=== PATIENT | male | born 1960 | race Caucasian/White ===

== ENCOUNTER 2016-11-14 09:13 | Day surgery (SDC) | payer BC ==
[~2016-11-14] VITALS: Ht 182.9 cm; Wt 67.6 kg
[~2016-11-14 09:13] MED LIST: BUPIVACAINE-EPI 0.5%-1:200000 50 ML VIAL. ONE; HYDROmorphone 2 MG/ML VIAL IV PRN; IV RINGERS,LACTATED 1000ML 1,000 ML IV SCH; LIDOCAINE 1% 1 ML SYRINGE. ID PRN; MORPHINE SULFATE 2 MG/ML DISP.SYRIN. IV PRN; ONDANSETRON PF 4 MG/2 ML VIAL. IV PRN; PROCHLORPERAZINE 10 MG/2 ML VIAL. IV PRN; fentaNYL PF VIAL 100 MCG/2 ML VIAL IV PRN
[2016-11-14] MEDS ORDERED: VENTOLIN HFA18 GM INH (09:28)
[2016-11-14] MEDS ORDERED: FLUT1DIS IH (09:28)
[2016-11-14] MEDS ORDERED: PROPOFOL 20 ML IV ONE (11:06)
[2016-11-14] MEDS ORDERED: ONDANSETRON PF 4 MG/2 ML VIAL. ONE (11:06)
[2016-11-14] MEDS ORDERED: FAMOTIDINE 20 MG/2 ML VIAL ONE ×2 (11:06→12:06)
[2016-11-14] MEDS ORDERED: LIDOCAINE 2% PF Vial for OR 5 ML VIAL. ONE (11:06)
[2016-11-14] MEDS ORDERED: DEXAMETHASONE SOD PHOS 20 MG/5 ML VIAL. ONE (11:06)
[2016-11-14] MEDS ORDERED: ROCURONIUM 100 MG/10 ML VIAL. ONE (11:08)
[2016-11-14] MEDS ORDERED: MIDAZOLAM HCL/PF 2 MG/2 ML VIAL. ONE (11:08)
[2016-11-14] MEDS ORDERED: fentaNYL PF VIAL 100 MCG/2 ML VIAL ONE ×2 (11:08→12:07)
[2016-11-14] MEDS ORDERED: GLYCOPYRROLATE 1 MG/5 ML VIAL. ONE (12:59)
[2016-11-14] MEDS ORDERED: NEOSTIGMINE METHYLSULFATE 5 MG/5 ML SYRINGE. ONE (13:00)
[2016-11-14] MEDS ORDERED: SEVOFLURANE 61 TO 120 MINUTES. IH ONE (13:08)
--- NOTE | 2016-11-14 13:41 | PDOC ---
BRIEF OPERATIVE NOTE Pre-Op Diagnosis #[id number] RIH incarcerated umb hernia lap rih repair with mesh primary open repair of incarcerated umb hernia k lloyd keene ebl 10 ivf 1000 grupo well to rr stable JEANNIE SANTANA MD Nov 14, 2016 13:41
[2016-11-14] MEDS ORDERED: OXYC-323 PO (14:03)
[2016-11-14] MEDS ORDERED: oxyCODONE/APAP 5/325 1 TAB TABLET PO ONE (14:15)
[2016-11-14 14:58] VITALS: BP 127/74
--- NOTE | 2016-11-14 15:11 | OP ---
DATE OF SURGERY: 11/14/2016 PREOPERATIVE DIAGNOSES: 1. Right inguinal hernia. 2. Incarcerated umbilical hernia. POSTOPERATIVE DIAGNOSES: 1. Right inguinal hernia. 2. Incarcerated umbilical hernia. NAME OF THE PROCEDURE: 1. Laparoscopic right inguinal hernia repair with mesh. 2. Primary incarcerated open umbilical hernia repair. SURGEON: Jeannie Santana MD ANESTHESIA: General. ESTIMATED BLOOD LOSS: 10 mL. IV FLUIDS: 1000 mL. INDICATIONS FOR THE PROCEDURE: The patient is a 56-year-old male with symptomatic right inguinal hernia and incarcerated umbilical hernia that he would like to have repaired. FINDINGS: He had an indirect right inguinal hernia. The sac was rather large. He had an incarcerated umbilical hernia; the preperitoneal fat was incarcerated. DESCRIPTION OF PROCEDURE: After informed consent was obtained, the patient was taken to the operating room and placed in supine position. After adequate induction of general anesthesia, he was prepped and draped in usual sterile fashion. An infraumbilical skin incision was made with a scalpel, subcutaneous tissues divided with cautery. The umbilical stalk encircled with a hemostat and the dermis of the umbilicus was then removed from the hernia sac with cautery. The incarcerated content was preperitoneal fat. This was reduced back within the preperitoneal space. The defect measured 5-6 mm and it was dilated up with a 10 mm port to gain direct access to the peritoneal cavity. Pneumoperitoneum was established under direct vision which revealed good port placement. No evidence of entry trauma. This was a 5-mm 30-degree lens. Two additional ports were placed on either side of the midline just at the level of the umbilicus. These were 5 mm ports placed under direct vision after injecting the areas with local anesthetic. An ilioinguinal nerve block was performed 1 cm medially and 1 cm inferior to the ASIS on the right. The peritoneum was then scored from the ASIS on the right across to the midline with cautery and the preperitoneal space developed with DeBakey graspers. In doing so, the peritoneal flap was skeletonized well proximal on the spermatic cord structures. The hernia sac was long and densely adherent to the cord structures, but this was able to be reduced as well. The dissection was carried to the midline and then deep to the Jonas's ligament to expose the femoral space. A large piece of 3DMax mesh was then brought on to the field. It was placed in the preperitoneal space on the right and it was sutured to the pubic tubercle along the rectus muscle medially along the anterior abdominal wall musculature. No tacks were placed along Jonas's ligament and no tacks were placed beneath the iliopubic tract laterally. This was done with SecureStrap. The mesh at that point sat flat against the preperitoneal space that covered the direct, indirect and femoral spaces. The peritoneal flap could be reapproximated without shifting or rolling of the mesh. Peritoneal flap was then reapproximated to the SecureStrap. The hernia sac was also secured at the anterior abdominal wall to prevent it from being a lead point for recurrence. At this point, the flap was firmly reapproximated to the anterior abdominal wall with a SecureStrap. There was no mesh visible. There were no defects or gaping in the flap closure. Everything was hemostatic. The ports were removed under direct vision. They were hemostatic. Pneumoperitoneum was desufflated. The umbilical hernia was then closed primarily with 0 Prolene suture x2, so the knots were buried. Dermis of the umbilicus was tacked back down to the fascia. The fascia was injected with local anesthetic. Skin was closed at all incisions with 4-0 Monocryl in subcuticular fashion. Sterile dressings were placed which for the umbilicus consisted of Mastisol, Steri-Strips, a cotton ball and Tegaderm. He tolerated the procedure well. There were no apparent complications. He was then transferred in stable condition to the recovery room. JEANNIE SANTANA MD DR: URMILA/mercedes JOB#: [id number] / [id number] KENYON Mccauley MD
== END 2016-11-14 15:05 | disposition home or self-care (01) ==
LOC: SURG 09:13
PROVIDERS: ATTEND Surgery
DX: K40.90 Unilateral inguinal hernia, without obstruction or gangrene, not specified as recurrent (principal); K42.0 Umbilical hernia with obstruction, without gangrene; J45.909 Unspecified asthma, uncomplicated; Z72.89 Other problems related to lifestyle; Z72.0 Tobacco use
CPT/HCPCS: 49587; 49650; A4215; C1781; J0690; J1100; J2250; J2405; J2704; J2710; J3010; J3490; J7030; J7120; S0028; J2001

== ENCOUNTER 2016-11-14 18:02 | Inpatient (IN) | payer BC ==
[~2016-11-14] VITALS: Ht 182.9 cm; Wt 68.0 kg
[~2016-11-14 18:02] MED LIST changes: -BUPIVACAINE-EPI 0.5%-1:200000 50 ML VIAL. ONE; +FLUT1DIS IH; -HYDROmorphone 2 MG/ML VIAL IV PRN; -IV RINGERS,LACTATED 1000ML 1,000 ML IV SCH; -LIDOCAINE 1% 1 ML SYRINGE. ID PRN; -MORPHINE SULFATE 2 MG/ML DISP.SYRIN. IV PRN; -ONDANSETRON PF 4 MG/2 ML VIAL. IV PRN; +OXYC-323 PO; -PROCHLORPERAZINE 10 MG/2 ML VIAL. IV PRN; +VENTOLIN HFA18 GM INH; -fentaNYL PF VIAL 100 MCG/2 ML VIAL IV PRN
[2016-11-14 18:57] LABS: BASO % 0 % (0-3); EOS % 0 % (0-3); HEMATOCRIT 38.2 % (39.0-53.0); HEMOGLOBIN 12.9 g/dL (13.0-17.5); LYMPH # 0.4 x10^3/uL (1.0-4.8); LYMPH % 5 % (24-48); MEAN CORPUSCULAR HEMOGLOBIN 34 pg (25-35); MEAN CORPUSCULAR HGB CONC 34 g/dL (31-37); MEAN CORPUSCULAR VOLUME 100 fL (79-100); MONO % 1 % (0-9); NEUT % 94 % (31-73); PLATELET COUNT 202 x10^3/uL (140-400); RED BLOOD COUNT 3.83 x10^6/uL (4.30-5.70); RED CELL DISTRIBUTION WIDTH 13.2 % (11.5-14.5); WHITE BLOOD COUNT 8.5 x10^3/uL (4.0-11.0)
[2016-11-14] MEDS ORDERED: IV NORMAL SALINE 1000ML BAG 1,000 ML IV ONE (19:00)
[2016-11-14 19:08] LABS: PROTHROMBIN TIME PATIENT 12.9 SEC (11.7-14.0)
[2016-11-14 19:11] LABS: CALCIUM 9.1 mg/dL (8.5-10.1); CREATININE 0.9 mg/dL (0.7-1.3); GFR 86.7
[2016-11-14 19:17] LABS: % EOS 1 % (0-5); ALBUMIN 3.7 g/dL (3.4-5.0); ALBUMIN/GLOBULIN RATIO 1.2 (1.0-1.7); TOTAL BILIRUBIN 0.5 mg/dL (0.2-1.0); TOTAL PROTEIN 6.7 g/dL (6.4-8.2)
[2016-11-14 19:18] LABS: PLT ESTIMATE ADEQUATE (ADEQUATE)
--- NOTE | 2016-11-14 19:25 | RAD ---
CT HEAD INDICATION: PT STATES HERNIA SURGERY THIS AM INCISION SWELLING AND L SIDED NUMBNESS COMPARISON: 07/07/2009 TECHNIQUE: 5 mm contiguous axial images were obtained from the skull base to the vertex. Exposure: One or more of the following individualized dose reduction techniques were utilized for this examination: 1. Automated exposure control 2. Adjustment of the mA and/or kV according to patient size 3. Use of iterative reconstruction technique FINDINGS: No abnormal attenuation within the brain parenchyma. No evidence of acute intracranial hemorrhage. No extra-axial fluid collections. No mass effect or midline shift. Ventricular size is appropriate. Basal cisterns are patent. No fractures identified.Pearson-white differentiation is preserved.Globes and orbits are within normal limits. Moderate mucosal thickening identified in the right maxillary sinus and mild mucosal thickening identified in the left maxillary sinus with small mucous retention cyst or polyp identified in the left maxillary sinus. IMPRESSION: No acute intracranial findings. ER ordering physician called at time of dictation. Electronically signed by: Neel Membreno MD (11/14/2016 7:22 PM) [facility]
[2016-11-14] MEDS ORDERED: IOHEXOL 300 MG/ML 75 ML VIAL IV ONE (20:15)
[2016-11-14] MEDS ORDERED: CONTRAST GIVEN MC PRN (20:15)
[2016-11-14 20:43] LABS: BILIRUBIN,URINE NEGATIVE (NEG); GLUCOSE,URINE NEGATIVE (NEG); NITRITE,URINE NEGATIVE (NEG); PROTEIN,URINE NEGATIVE (NEG-TRACE); UROBILINOGEN,URINE 0.2 mg/dL (0.2 mg/dL)
[2016-11-14 20:47] LABS: BACTERIA,URINE 0 /HPF (0-FEW)
[2016-11-14] MEDS ORDERED: MORPHINE SULFATE 4 MG/ML DISP.SYRIN. IV/SQ PRN (21:30)
--- NOTE | 2016-11-14 21:31 | RAD ---
Exam performed: CT abdomen and pelvis with contrast. HISTORY: Hernia. Today, incision swelling and left-sided numbness which shortness of air. DATE OF SERVICE: 11/14/2016. COMPARISON: None available TECHNIQUE: Contiguous helical acquisitions are obtained through the abdomen and pelvis during intravenous administration of 75 cc of Omnipaque 300. Sagittal and coronal reformatted images are obtained and reviewed. FINDINGS: Moderate pneumoperitoneum is seen anterior to the liver and along the gallbladder fossa. There is free at the edge of the falciform ligament. Several free pockets of air seen in the left upper abdomen anterior to the stomach. There is subcutaneous emphysema in the abdominal wall bilaterally with air tracking in both flanks. Operative changes of hernia repair seen in the right groin with soft tissue swelling and subcutaneous air. There is also free air trapping in the pelvis. Lung bases are clear. The visualized heart is normal. The liver, gallbladder, spleen and pancreas are normal. Both adrenal glands and bilateral kidneys are normal in size. Probable cyst right superior renal pole. The aorta is normal in caliber demonstrating mild atheromatous calcification. Small and large bowel loops are nondilated and unremarkable. Urinary bladder is partially decompressed. Moderate amount of free air in the urinary bladder may be related to instrumentation. Prostate gland, seminal vesicles and rectum appear normal. Interrogation of bone windows demonstrates mild spondylotic changes. IMPRESSION: Moderate pneumoperitoneum with diffuse subcutaneous emphysema. While the subcutaneous emphysema may be related to recent postoperative changes, however pneumoperitoneum secondary to bowel perforation is suspected. The critical results were given to Dr. Hess in the ER soon after completion of the study at 9:23 PM. Electronically signed by: Ronda Camargo MD (11/14/2016 9:28 PM) [place] [id number]
[2016-11-14] MEDS ORDERED: MORPHINE SULFATE 2 MG/ML DISP.SYRIN. IV PRN (22:30)
[2016-11-14] MEDS ORDERED: ACETAMINOPHEN 325 MG TABLET. PO PRN (22:30)
[2016-11-14] MEDS ORDERED: ONDANSETRON PF 4 MG/2 ML VIAL. IV PRN (22:30)
--- NOTE | 2016-11-14 22:33 | PHYS DOC ---
Past Medical History Past Medical History: Other Additional Past Medical Histor: Hernia Past Surgical History: Other Additional Past Surgical Histo: Hernia Repair Alcohol Use: Heavy Drug Use: None Adult General Chief Complaint Chief Complaint: OTHER COMPLAINTS HPI HPI Patient is a 56 year old male who presents with multiple complaints after surgery today. The patient states he underwent inguingal & umbilical hernia repair by Dr. Cotton at about 1100 this morning. Around 1630 this afternoon he had sudden onset of left sided chest pain, left arm pain & numbness, & abdominal pain & distention. Reports shortness of breath. He denies fevers/ chills, slurred speech, vision changes, facial droop, cough, vomiting, diarrhea , dysuria. He denies significant past medical history. Review of Systems Review of Systems Constitutional: Denies fever or chills Eyes: Denies change in visual acuity HENT: Denies nasal congestion or sore throat Respiratory: Denies cough, reports shortness of breath Cardiovascular: Reports chest pain, denies edema GI: Reports abdominal pain, denies nausea, vomiting, bloody stools or diarrhea : Denies dysuria or hematuria Musculoskeletal: Denies back pain or joint pain Integument: Denies rash or skin lesions Neurologic: Denies headache, reports left arm numbness & weakness. Current Medications Current Medications Current Medications Medications (Trade) Dose Ordered Sig/Evi Start Time Stop Time Status Last Admin Dose Admin Info (Do NOT chart on this entry -- for MONITORING) 1 each PRN DAILY PRN 11/14/16 20:15 11/16/16 20:14 Iohexol (Omnipaque 300 Mg/ml) 75 ml 1X ONCE 11/14/16 20:15 11/14/16 20:16 DC 11/14/16 20:15 75 ML Morphine Sulfate 4 mg PRN Q15MIN PRN 11/14/16 21:30 11/15/16 21:29 11/14/16 21:41 4 MG Sodium Chloride 1,000 ml @ 1,000 mls/hr 1X ONCE 11/14/16 19:00 11/14/16 19:59 DC 11/14/16 18:56 1,000 MLS/HR Allergies Allergies Allergies Coded Allergies Type Severity Reaction Last Updated Verified No Known Drug Allergies 11/14/16 No Physical Exam Physical Exam Constitutional: Well developed, well nourished, no acute distress, non-toxic appearance. HENT: Normocephalic, atraumatic, bilateral external ears normal, oropharynx moist, nose normal. Eyes: PERRLA, EOMI, conjunctiva normal, no discharge. Neck: supple, no stridor. no carotid bruit Cardiovascular: RRR, no murmurs, no edema. Lungs & Thorax: LCTAB, no wheezing, no respiratory distress. reproducible tenderness with palpation over left anterior chest wall. Abdomen: soft, surgical dressings in place, clean/dry, intact, there is focal distention over right lower quadrant of the abdomen with overlying tenderness, no rebound/guarding, no masses or pulsatile masses. Skin: Warm, dry, no erythema, no rash. Back: No CVA tenderness. Extremities: No tenderness, no edema. Neurologic: Alert and oriented X 3, CN2-12 grossly intact, left upper extremity 4/5 strength with transmissions systems operator strength & resisted biceps flexion/extension, normal sensation, clumsy finger to nose, all (transmissions systems operator/biceps/sensation/finger to nose) intact on the right. no focal deficits noted. symmetric strength/sensation to lower extremities. Psychologic: Affect normal, judgement normal, mood normal. Current Patient Data Vital Signs Vital Signs Date Time Temp Pulse Resp B/P (MAP) Pulse Ox O2 Delivery O2 Flow Rate FiO2 11/14/16 21:41 69 16 155/85 (108) 95 Room Air 11/14/16 18:15 98.7 98.7 Lab Values Laboratory Tests Test 11/14/16 18:45 11/14/16 20:33 White Blood Count 8.5 x10^3/uL (4.0-11.0) Red Blood Count 3.83 x10^6/uL (4.30-5.70) L Hemoglobin 12.9 g/dL (13.0-17.5) L Hematocrit 38.2 % (39.0-53.0) L Mean Corpuscular Volume 100 fL (79-100) Mean Corpuscular Hemoglobin 34 pg (25-35) Mean Corpuscular Hemoglobin Concent 34 g/dL (31-37) Red Cell Distribution Width 13.2 % (11.5-14.5) Platelet Count 202 x10^3/uL (140-400) Neutrophils (%) (Auto) 94 % (31-73) H Lymphocytes (%) (Auto) 5 % (24-48) L Monocytes (%) (Auto) 1 % (0-9) Eosinophils (%) (Auto) 0 % (0-3) Basophils (%) (Auto) 0 % (0-3) Neutrophils # (Auto) 7.9 x10^3uL (1.8-7.7) H Lymphocytes # (Auto) 0.4 x10^3/uL (1.0-4.8) L Monocytes # (Auto) 0.1 x10^3/uL (0.0-1.1) Eosinophils # (Auto) 0.0 x10^3/uL (0.0-0.7) Basophils # (Auto) 0.0 x10^3/uL (0.0-0.2) Segmented Neutrophils % 82 % (35-66) H Band Neutrophils % 13 % (0-9) H Lymphocytes % 3 % (24-48) L Monocytes % 1 % (0-10) Eosinophils % 1 % (0-5) Platelet Estimate Adequate (ADEQUATE) Prothrombin Time 12.9 SEC (11.7-14.0) Prothrombin Time INR 1.0 (0.8-1.1) PTT 28 SEC (24-38) D-Dimer (Danisha) 0.27 ug/mlFEU (0.00-0.50) Sodium Level 140 mmol/L (136-145) Potassium Level 4.0 mmol/L (3.5-5.1) Chloride Level 102 mmol/L (98-107) Carbon Dioxide Level 28 mmol/L (21-32) Anion Gap 10 (6-14) Blood Urea Nitrogen 14 mg/dL (8-26) Creatinine 0.9 mg/dL (0.7-1.3) Estimated GFR (Cockcroft-Gault) 86.7 BUN/Creatinine Ratio 16 (6-20) Glucose Level 143 mg/dL (70-99) H Calcium Level 9.1 mg/dL (8.5-10.1) Total Bilirubin 0.5 mg/dL (0.2-1.0) Aspartate Amino Transferase (AST) 27 U/L (15-37) Alanine Aminotransferase (ALT) 41 U/L (16-63) Alkaline Phosphatase 89 U/L (46-116) Troponin I Quantitative < 0.017 ng/mL (0.000-0.055) OT-Uke-S-Type Natriuretic Peptide 108 pg/mL (0-124) Total Protein 6.7 g/dL (6.4-8.2) Albumin 3.7 g/dL (3.4-5.0) Albumin/Globulin Ratio 1.2 (1.0-1.7) Lipase 79 U/L (73-393) Urine Collection Type Unknown Urine Color Yellow Urine Clarity Cloudy Urine pH 6.0 Urine Specific [place] 1.025 Urine Protein Negative mg/dL (NEG-TRACE) Urine Glucose (UA) Negative mg/dL (NEG) Urine Ketones (Stick) Negative mg/dL (NEG) Urine Blood Small (NEG) Urine Nitrite Negative (NEG) Urine Bilirubin Negative (NEG) Urine Urobilinogen Dipstick 0.2 mg/dL (0.2 mg/dL) Urine Leukocyte Esterase Negative (NEG) Urine RBC 6-10 /HPF (0-2) Urine WBC 1-4 /HPF (0-4) Urine Bacteria 0 /HPF (0-FEW) Urine Mucus Marked /LPF Laboratory Tests 11/14/16 18:45 Laboratory Tests 11/14/16 18:45 EKG EKG interpreted by me: NSR rate 61, no acute ST/T wave changes, normal intervals, no ectopy.[] Radiology/Procedures Radiology/Procedures CXR portable: interpreted by me: no cardiomegaly, no infiltrate, no pneumothorax, free air under diaphragm. PROCEDURE: CT CODE STROKE HEAD WO CT HEAD INDICATION: PT STATES HERNIA SURGERY THIS AM INCISION SWELLING AND L SIDED NUMBNESS COMPARISON: 07/07/2009 TECHNIQUE: 5 mm contiguous axial images were obtained from the skull base to the vertex. Exposure: One or more of the following individualized dose reduction techniques were utilized for this examination: 1. Automated exposure control 2. Adjustment of the mA and/or kV according to patient size 3. Use of iterative reconstruction technique FINDINGS: No abnormal attenuation within the brain parenchyma. No evidence of acute intracranial hemorrhage. No extra-axial fluid collections. No mass effect or midline shift. Ventricular size is appropriate. Basal cisterns are patent. No fractures identified.Pearson-white differentiation is preserved.Globes and orbits are within normal limits. Moderate mucosal thickening identified in the right maxillary sinus and mild mucosal thickening identified in the left maxillary sinus with small mucous retention cyst or polyp identified in the left maxillary sinus. IMPRESSION: No acute intracranial findings. ER ordering physician called at time of dictation. Electronically signed by: Neel Membreno MD (11/14/2016 7:22 PM) [facility] DICTATED and SIGNED BY: NEEL MEMBRENO MD DATE: 11/14/161917 PROCEDURE: CT ABD PELV W/ IV CONTRST ONLY Exam performed: CT abdomen and pelvis with contrast. HISTORY: Hernia. Today, incision swelling and left-sided numbness which shortness of air. DATE OF SERVICE: 11/14/2016. COMPARISON: None available TECHNIQUE: Contiguous helical acquisitions are obtained through the abdomen and pelvis during intravenous administration of 75 cc of Omnipaque 300. Sagittal and coronal reformatted images are obtained and reviewed. FINDINGS: Moderate pneumoperitoneum is seen anterior to the liver and along the gallbladder fossa. There is free at the edge of the falciform ligament. Several free pockets of air seen in the left upper abdomen anterior to the stomach. There is subcutaneous emphysema in the abdominal wall bilaterally with air tracking in both flanks. Operative changes of hernia repair seen in the right groin with soft tissue swelling and subcutaneous air. There is also free air trapping in the pelvis. Lung bases are clear. The visualized heart is normal. The liver, gallbladder, spleen and pancreas are normal. Both adrenal glands and bilateral kidneys are normal in size. Probable cyst right superior renal pole. The aorta is normal in caliber demonstrating mild atheromatous calcification. Small and large bowel loops are nondilated and unremarkable. Urinary bladder is partially decompressed. Moderate amount of free air in the urinary bladder may be related to instrumentation. Prostate gland, seminal vesicles and rectum appear normal. Interrogation of bone windows demonstrates mild spondylotic changes. IMPRESSION: Moderate pneumoperitoneum with diffuse subcutaneous emphysema. While the subcutaneous emphysema may be related to recent postoperative changes, however pneumoperitoneum secondary to bowel perforation is suspected. The critical results were given to Dr. Hess in the ER soon after completion of the study at 9:23 PM. Electronically signed by: Ronda Camargo MD (11/14/2016 9:28 PM) [facility] DICTATED and SIGNED BY: RONDA CAMARGO MD DATE: 11/14/162115 [] Course & Med Decision Making Course & Med Decision Making Pertinent Labs and Imaging studies reviewed. (See chart for details) The patient has multiple potentially serious complaints in the postoperative period. Though there are certainly benign explanations for each of his problems , will evaluate for serious/life threatening cause. He had onset of symptoms 3.5 hours prior to arrival but with abdominal surgery today is not a candidate for TPA. Obtained urgent head CT which was negative for hemorrhage. Discussed with Dr. Bradshaw, agrees no TPA particularly as patient's left arm symptoms had completely disappeared at that time. He recommended aspirin 81 mg now & daily, if okay by surgery. Recommends admit for MRI/carotid dopplers. Obtained labs, EKG, CXR, CTA chest & CT abdomen/pelvis. Patient had moderate free air in abdomen; in the absence of peritoneal signs, Dr. Oseguera of general surgery felt likely normal pneumoperitoneum postoperatively but agrees with admit for repeat exam in the morning. No serious findings for cause of chest pain but will repeat cardiac enzymes. The patient agrees with plan for admission. Discussed with Dr. Abarca who agrees to admit to inpatient status with consults to Dr. Cotton of general surgery, Dr. Christensen of cardiology The patient is admitted in stable condition. [] Dragon Disclaimer Dragon Disclaimer This electronic medical record was generated, in whole or in part, using a voice recognition dictation system. Departure Departure Impression: Primary Impression: TIA (transient ischemic attack) Additional Impressions: Chest pain Abdominal pain Disposition: 09 ADMITTED INPATIENT Admitting Physician: Zuleyma Abarca Condition: STABLE Referrals: KENYON LOGAN Jr, MD (PCP) Problem Qualifiers RIO HUBBARD MD Nov 14, 2016 22:33
[2016-11-14] MEDS ORDERED: ASPIRIN ENTERIC COATED 81 MG TABLET.DR. PO ONE (22:45)
--- NOTE | 2016-11-14 22:55 | EKG ---
[facility] [address] [place] [address] Test Date: 2016-11-14 Test Time: 18:22:18 Pat Name: ZOE WOODS Department: Room: Gender: M Plumbing Foreman: : 1960 Requested By: RIO HUBBARD Order Number: [id number] Reading MD: Avery Christensen Measurements Intervals [place] Rate: 61 P: 55 HI: 146 QRS: 41 QRSD: 88 T: 39 QT: 390 QTc: 398 Interpretive Statements SINUS RHYTHM Electronically Signed On 11-15-2016 13:31:17 CDT by Avery Christensen
--- NOTE | 2016-11-14 23:13 | RAD ---
Examination: CT angiography chest HISTORY: History of hernia repair, shortness of breath COMPARISON: None available TECHNIQUE: Axial CT images of this were performed with IV contrast. Coronal and sagittal 3-D MIP reformats are performed. Exposure: One or more of the following individualized dose reduction techniques were utilized for this examination: 1. Automated exposure control 2. Adjustment of the mA and/or kV according to patient size 3. Use of iterative reconstruction technique FINDINGS: The visualized thyroid gland grossly appears unremarkable. The central airways are patent. The ascending aorta measures 3.3 cm in transverse dimension. There is no evidence of filling defect identified in the main pulmonary artery and the visualized lobar, segmental branches pulmonary artery. Minimal bibasilar lung atelectasis. Partially visualized free air identified in the abdomen. No evidence of lytic bony destructive lesion identified. IMPRESSION: 1. No evidence of pulmonary embolism. 2. Minimal bibasilar lung atelectasis. 3. Partially visualized pneumoperitoneum. Electronically signed by: Neel Membreno MD (11/14/2016 11:10 PM) [facility]
[2016-11-14 23:20] VITALS: BP 135/76
[2016-11-15 03:20] VITALS: BP 116/63
[2016-11-15 05:41] LABS: BASO % 0 % (0-3); EOS % 0 % (0-3); HEMATOCRIT 36.6 % (39.0-53.0); HEMOGLOBIN 12.6 g/dL (13.0-17.5); LYMPH # 0.9 x10^3/uL (1.0-4.8); LYMPH % 11 % (24-48); MEAN CORPUSCULAR HEMOGLOBIN 34 pg (25-35); MEAN CORPUSCULAR HGB CONC 34 g/dL (31-37); MEAN CORPUSCULAR VOLUME 99 fL (79-100); MONO % 10 % (0-9); NEUT % 78 % (31-73); PLATELET COUNT 207 x10^3/uL (140-400); RED BLOOD COUNT 3.71 x10^6/uL (4.30-5.70); RED CELL DISTRIBUTION WIDTH 13.4 % (11.5-14.5); WHITE BLOOD COUNT 8.2 x10^3/uL (4.0-11.0)
[2016-11-15 05:46] LABS: CALCIUM 8.5 mg/dL (8.5-10.1); CREATININE 0.8 mg/dL (0.7-1.3); GFR 99.3; POTASSIUM 4.2 mmol/L (3.5-5.1)
[2016-11-15 07:00] VITALS: BP 102/63
--- NOTE | 2016-11-15 07:37 | PDOC2 ---
RANGEL MILLER TOUR AGENT 11/15/16 0737: CARDIAC CONSULT DATE OF CONSULT Date of Consult DATE: 11/15/16 TIME: 07:30 REASON FOR CONSULT Reason for Consult: Chest pain REFERRING PHYSICIAN Referring Physician: Dr. Thomas SOURCE Source: Chart review, Patient HISTORY OF PRESENT ILLNESS HISTORY OF PRESENT ILLNESS This is a 56 yo male who underwent inguinal and umbilical hernia repair with Dr. Cotton yesterday. When home around 4pm. Shortly thereafter, developed "tennis ball size" RLQ laparoscopic incisional swelling and severe abdominal pain. Then developed left-sided chest pain along with numbness and tingling of left arm. Describes chest pain as sharp. No worsening factors. Resolved with pain medication in ED. Denies any associated dizziness, diaphoresis, palpitations, SOA, syncope, or nausea/vomiting. Troponin negative X2- AMI ruled out. EKG shows SR with t-wave inversion of V1; no significant acute changes. CT of the abdomen/pelvis shows moderate pneumoperitoneum with diffuse subcutaneous emphysema. Does reports having occasional pains in his left chest. Worsened by laying down. Generally lasts about 15 mins and resolves without interventions. No associated factors. PAST MEDICAL HISTORY Cardiovascular: No pertinent hx Pulmonary: Asthma CENTRAL NERVOUS SYSTEM: Vertigo GI: No pertinent hx Heme/Onc: No pertinent hx Hepatobiliary: No pertinent hx Psych: No pertinent hx Rheumatologic: No pertinent hx Infectious disease: No pertinent hx ENT: No pertinent hx Renal/: No pertinent hx Endocrine: No pertinent hx Dermatology: No pertinent hx PAST SURGICAL HISTORY Past Surgical History: Hernia Repair (11/14/16) FAMILY HISTORY Family History: Other (noncontributory ) SOCIAL HISTORY Smoke: <1 pack per day ALCOHOL: other (3-4 beers per day) Drugs: None Lives: Alone CURRENT MEDICATIONS CURRENT MEDICATIONS Current Medications Medications (Trade) Dose Ordered Sig/Evi Route PRN Reason Start Time Stop Time Status Last Admin Dose Admin Sodium Chloride 1,000 ml @ 1,000 mls/hr 1X ONCE IV 11/14/16 19:00 11/14/16 19:59 DC 11/14/16 18:56 Iohexol (Omnipaque 300 Mg/ml) 75 ml 1X ONCE IV 11/14/16 20:15 11/14/16 20:16 DC 11/14/16 20:15 Morphine Sulfate 4 mg PRN Q15MIN PRN IV/SQ PAIN GREATER THAN 3/10 11/14/16 21:30 11/15/16 21:29 11/14/16 21:41 Morphine Sulfate 2 mg PRN Q2HR PRN IV PAIN 11/14/16 22:30 11/15/16 22:29 11/15/16 05:52 ALLERGIES ALLERGIES: Coded Allergies: No Known Drug Allergies (Unverified , 11/14/16) ROS Review of System 14 point ROS conducted with pertinent positives noted above in HPI. PHYSICAL EXAM General: Alert, Oriented X3, Cooperative, No acute distress HEENT: Atraumatic, Mucous membr. moist/pink Lungs: Clear to auscultation, Normal air movement Heart: Regular rate, Normal S1, Normal S2 Abdomen: Other (diffuse tenderness. Lap site dressing CDI) Extremities: No edema, Normal pulses Skin: No significant lesion Neuro: Normal speech, Sensation intact Psych/Mental Status: Mental status NL, Mood NL MUSCULOSKELETAL: No joint tenderness VITALS VITALS Vital Signs Date Time Temp Pulse Resp B/P (MAP) Pulse Ox O2 Delivery O2 Flow Rate FiO2 11/15/16 06:43 Room Air 11/15/16 03:20 97.8 54 18 116/63 (80) 98 97.8 LABS Lab: Laboratory Tests Test 11/14/16 18:45 11/14/16 20:33 11/15/16 04:35 White Blood Count 8.5 x10^3/uL (4.0-11.0) 8.2 x10^3/uL (4.0-11.0) Red Blood Count 3.83 x10^6/uL (4.30-5.70) 3.71 x10^6/uL (4.30-5.70) Hemoglobin 12.9 g/dL (13.0-17.5) 12.6 g/dL (13.0-17.5) Hematocrit 38.2 % (39.0-53.0) 36.6 % (39.0-53.0) Mean Corpuscular Volume 100 fL (79-100) 99 fL (79-100) Mean Corpuscular Hemoglobin 34 pg (25-35) 34 pg (25-35) Mean Corpuscular Hemoglobin Concent 34 g/dL (31-37) 34 g/dL (31-37) Red Cell Distribution Width 13.2 % (11.5-14.5) 13.4 % (11.5-14.5) Platelet Count 202 x10^3/uL (140-400) 207 x10^3/uL (140-400) Neutrophils (%) (Auto) 94 % (31-73) 78 % (31-73) Lymphocytes (%) (Auto) 5 % (24-48) 11 % (24-48) Monocytes (%) (Auto) 1 % (0-9) 10 % (0-9) Eosinophils (%) (Auto) 0 % (0-3) 0 % (0-3) Basophils (%) (Auto) 0 % (0-3) 0 % (0-3) Neutrophils # (Auto) 7.9 x10^3uL (1.8-7.7) 6.4 x10^3uL (1.8-7.7) Lymphocytes # (Auto) 0.4 x10^3/uL (1.0-4.8) 0.9 x10^3/uL (1.0-4.8) Monocytes # (Auto) 0.1 x10^3/uL (0.0-1.1) 0.9 x10^3/uL (0.0-1.1) Eosinophils # (Auto) 0.0 x10^3/uL (0.0-0.7) 0.0 x10^3/uL (0.0-0.7) Basophils # (Auto) 0.0 x10^3/uL (0.0-0.2) 0.0 x10^3/uL (0.0-0.2) Segmented Neutrophils % 82 % (35-66) Band Neutrophils % 13 % (0-9) Lymphocytes % 3 % (24-48) Monocytes % 1 % (0-10) Eosinophils % 1 % (0-5) Platelet Estimate Adequate (ADEQUATE) Prothrombin Time 12.9 SEC (11.7-14.0) Prothromb Time International Ratio 1.0 (0.8-1.1) Activated Partial Thromboplast Time 28 SEC (24-38) D-Dimer (Danisha) 0.27 ug/mlFEU (0.00-0.50) Sodium Level 140 mmol/L (136-145) 141 mmol/L (136-145) Potassium Level 4.0 mmol/L (3.5-5.1) 4.2 mmol/L (3.5-5.1) Chloride Level 102 mmol/L (98-107) 106 mmol/L (98-107) Carbon Dioxide Level 28 mmol/L (21-32) 29 mmol/L (21-32) Anion Gap 10 (6-14) 6 (6-14) Blood Urea Nitrogen 14 mg/dL (8-26) 11 mg/dL (8-26) Creatinine 0.9 mg/dL (0.7-1.3) 0.8 mg/dL (0.7-1.3) Estimated GFR (Cockcroft-Gault) 86.7 99.3 BUN/Creatinine Ratio 16 (6-20) Glucose Level 143 mg/dL (70-99) 106 mg/dL (70-99) Calcium Level 9.1 mg/dL (8.5-10.1) 8.5 mg/dL (8.5-10.1) Total Bilirubin 0.5 mg/dL (0.2-1.0) Aspartate Amino Transf (AST/SGOT) 27 U/L (15-37) Alanine Aminotransferase (ALT/SGPT) 41 U/L (16-63) Alkaline Phosphatase 89 U/L (46-116) Troponin I Quantitative < 0.017 ng/mL (0.000-0.055) < 0.017 ng/mL (0.000-0.055) JV-Oai-V-Type Natriuretic Peptide 108 pg/mL (0-124) Total Protein 6.7 g/dL (6.4-8.2) Albumin 3.7 g/dL (3.4-5.0) Albumin/Globulin Ratio 1.2 (1.0-1.7) Lipase 79 U/L (73-393) Urine Collection Type Unknown Urine Color Yellow Urine Clarity Cloudy Urine pH 6.0 Urine Specific [place] 1.025 Urine Protein Negative mg/dL (NEG-TRACE) Urine Glucose (UA) Negative mg/dL (NEG) Urine Ketones (Stick) Negative mg/dL (NEG) Urine Blood Small (NEG) Urine Nitrite Negative (NEG) Urine Bilirubin Negative (NEG) Urine Urobilinogen Dipstick 0.2 mg/dL (0.2 mg/dL) Urine Leukocyte Esterase Negative (NEG) Urine RBC 6-10 /HPF (0-2) Urine WBC 1-4 /HPF (0-4) Urine Bacteria 0 /HPF (0-FEW) Urine Mucus Marked /LPF ASSESSMENT/PLAN ASSESSMENT/PLAN 1. Chest pain, atypical 2. Abdominal pain; s/p inguinal and umbilical hernia repair 11/14/16 3. Pneumoperitoneum, moderate as per CT 4. Tobaccoism Recommendations Supportive care Given previous episode of CP and risk factors, could consider outpatient cardiac workup when acute issues resolve. Follow up in our office with Dr. Christensen in 3-4 weeks Smoking cessation encouraged Problems: CHRISTOPHER CHRISTENSEN MD 11/15/16 1332: CARDIAC CONSULT ALLERGIES ALLERGIES: Coded Allergies: No Known Drug Allergies (Unverified , 11/14/16) ASSESSMENT/PLAN ASSESSMENT/PLAN pt. seen and examined. Agree with above CLAMMER note. Non-cardiac chest pain. Normal cardiac exam. Negative troponins Normal EKG Supportive care for now. Thanks for consult. Problems: RANGEL MILLER APRN Nov 15, 2016 07:37 CHRISTOPHER CHRISTENSEN MD Nov 15, 2016 13:32
[2016-11-15] MEDS ORDERED: fentaNYL PF VIAL 100 MCG/2 ML VIAL IV PRN (08:30)
[2016-11-15] MEDS ORDERED: NICOTINE POLACRILEX 2MG GUM PACKAGE of 12. BC PRN (08:45)
[2016-11-15] MEDS: POTASSIUM CL 20MEQ D5-0.45NACL 1,000 ML IV SCH ×2 (08:45→20:28)
[2016-11-15] MEDS ORDERED: NICOTINE 7MG PATCH. TD PRN (08:45)
[2016-11-15] MEDS: MORPHINE SULFATE 4 MG/ML DISP.SYRIN. IV PRN ×5 (08:53→23:22)
--- NOTE | 2016-11-15 08:58 | RAD ---
Portable chest, 11/14/2016: History: Chest pain, heaviness The heart size and pulmonary vascularity are normal. No pulmonary infiltrates are seen. There is no evidence of pleural fluid. A small amount of free air is noted in the upper abdomen. There is also mild abdominal wall emphysema. These findings are better demonstrated on the current CT exam. There is a given history of recent hernia surgery. IMPRESSION: 1. No acute cardiopulmonary abnormality. 2. Pneumoperitoneum.
--- NOTE | 2016-11-15 09:08 | PDOC1 ---
History and Physical Date of Admission Date of Admission DATE: 11/15/16 TIME: 09:00 Identification/Chief Complaint Chief Complaint abd pain Problems: Source Source: Chart review, Patient History of Present Illness History of Present Illness hernia repair operation yesterday morning in evening, severe pain, abdomen bloating, "tennis ball" sized swelling over RLQ laprascopic incision site,. then he had diffuse abdominal swelling later and severe abd pain with left upper chest pain,. He also described left hand weakness, tingling and numbness, which he reports has happened occasionally and more recently, this was more severe arm weakness , and his abdomen was very painful with nausea adn bloating, pain is a little relieved with IV morphine, still 10/16 Past Medical History Cardiovascular: No pertinent hx Pulmonary: Asthma GI: No pertinent hx Psych: No pertinent hx Infectious disease: No pertinent hx Endocrine: No pertinent hx Dermatology: No pertinent hx Past Surgical History Past Surgical History: Hernia Repair (11/14/16) Family History Family History: No Significant Social History ALCOHOL: heavy (4/day) Drugs: None Current Problem List Problem List Problems Medical Problems: (1) Abdominal pain Status: Acute (2) Chest pain Status: Acute (3) TIA (transient ischemic attack) Status: Acute Problems: Current Medications Current Medications Current Medications Sodium Chloride 1,000 ml @ 1,000 mls/hr 1X ONCE IV Last administered on 18:56; Start 11/14/16 at 19:00; Stop 11/14/16 at 19:59; Status DC Iohexol (Omnipaque 300 Mg/ml) 75 ml 1X ONCE IV Last administered on 11/14/16 20:15; Start 11/14/16 at 20:15; Stop 11/14/16 at 20:16; Status DC Info (Do NOT chart on this entry -- for MONITORING) 1 each PRN DAILY PRN MC SEE COMMENTS; Start 11/14/16 at 20:15; Stop 11/16/16 at 20:14 Morphine Sulfate 4 mg PRN Q15MIN PRN IV/SQ PAIN GREATER THAN 3/10 Last administered on 11/14/16 21:41; Start 11/14/16 at 21:30; Stop 11/15/16 at 08:23; Status DC Ondansetron HCl (Zofran) 4 mg PRN Q8HRS PRN IV NAUSEA/VOMITING; Start 11/14/16 at 22:30; Stop 11/15/16 at 22:29 Morphine Sulfate 2 mg PRN Q2HR PRN IV PAIN Last administered on 11/15/16 05:52 ; Start 11/14/16 at 22:30; Stop 11/15/16 at 08:23; Status DC Acetaminophen (Tylenol) 650 mg PRN Q4HRS PRN PO FEVER; Start 11/14/16 at 22:30; Stop 11/15/16 at 22:29 Aspirin (Ecotrin) 81 mg 1X ONCE PO ; Start 11/14/16 at 22:45; Stop 11/14/16 at 22 :46; Status DC Albuterol Sulfate (Ventolin Neb Soln) 2.5 mg Q4HRS NEB ; Start 11/15/16 at 12:00 Budesonide (Pulmicort) 0.5 mg RTBID NEB ; Start 11/15/16 at 20:00 Morphine Sulfate 4 mg PRN Q2HR PRN IV PAIN Last administered on 11/15/16 08:53 ; Start 11/15/16 at 08:30 Fentanyl Citrate (Fentanyl 2ml Vial) 75 mcg PRN Q2HR PRN IV PAIN; Start at 08:30 Potassium Chloride/Dextrose/ Sod Cl 1,000 ml @ 100 mls/hr Q10H IV Last administered on 11/15/16 08:45; Start 11/15/16 at 08:30 Thiamine HCl 100 mg/Sodium Chloride 51 ml @ 102 mls/hr DAILY IV ; Start at 09:00 Nicotine (Nicoderm Cq 7mg) 1 patch PRN DAILY PRN TD SMOKING CESSATION; Start at 08:45 Nicotine Polacrilex (Nicorette Gum) 1 each PRN Q1HR PRN BC SMOKING CESSATION; Start 11/15/16 at 08:45 Active Scripts Active Reported Ventolin Hfa Inhaler (Albuterol Sulfate) 18 Gm Hfa.aer.ad 2 Puff INH Q4HRS Advair 100-50 Diskus (Fluticasone/Salmeterol) 1 Each Disk.w.dev 1 Puff IH BID Allergies Allergies: Coded Allergies: No Known Drug Allergies (Unverified , 11/14/16) ROS General: No: Chills, Night Sweats, Fatigue, Malaise, Appetite, Other PSYCHOLOGICAL ROS: No: Anxiety, Behavioral Disorder, Concentration difficultie , Decreased libido, Depression, Disorientation, Hallucinations, Hostility, Irritablity, Memory difficulties, Mood Swings, Obsessive thoughts, Physical abuse, Sexual abuse, Sleep disturbances, Suicidal ideation, Other Eyes: No Blurry vision, No Decreased vision, No Double vision, No Dry eyes, No Excessive tearing, No Eye Pain, No Itchy Eyes, No Loss of vision, No Photophobia , No Scotomata, No Uses contacts, No Uses glasses, No Other HEENT: No: Heacaches, Visual Changes, Hearing change, Nasal congestion, Nasal discharge, Oral lesions, Sinus pain, Sore Throat, Epistaxis, Sneezing, Snoring, Tinnitus, Vertigo, Vocal changes, Other Hematological and Lymphatic: No: Bleeding Problems, Blood Clots, Blood Transfusions, Brusing, Night Sweats, Pallor, Swollen Lymph Nodes, Other Respiratory: YES: Cough, No: Hemoptysis, Orthopnea, Pleuritic Pain, Shortness of breath, SOB with excertion, Sputum Changes, Stridor, Tachypnea, Wheezing, Other Cardiovascular: yes Chest Pain, No Palpitations, No Orthopnea, No Paroxysmal Noc. Dyspnea, No Edema, No Lt Headedness, No Other Gastrointestinal: Yes Nausea, Yes Abdominal Pain, No Vomiting, No Diarrhea, No Constipation, No Melena, No Hematochezia, No Other Musculoskeletal: Yes Joint Pain, Yes Joint Stiffness, No Gait Disturbance, No Joint Swelling, No Muscle Pain, No Muscular Weakness , No Pain In:, No Swelling In:, No Other Neurological: No Behavorial Changes, No Bowel/Bladder ControlChng, No Confusion , No Dizziness, No Gait Disturbance, No Headaches, No Impaired Coord/balance, No Memory Loss, No Numbness/Tingling, No Seizures, No Speech Problems, No Tremors, No Visual Changes, No Weakness, No Other Skin: No Dry Skin, No Eczema, No Hair Changes, No Lumps, No Mole Changes, No Mottling, No Nail Changes, No Pruritus, No Rash, No Skin Lesion Changes, No Other, No Acne Physical Exam General: Alert, Oriented X3, Cooperative, No acute distress HEENT: Atraumatic, PERRLA, EOMI, Mucous membr. moist/pink Lungs: Clear to auscultation, Normal air movement Heart: no gallops, no murmurs Abdomen: Normal bowel sounds, Soft Rectal Exam: not examined Extremities: No clubbing, No edema, Normal pulses Skin: No breakdown, No significant lesion Neuro: Normal gait, Normal tone, Sensation intact, Cranial nerves 3-12 NL Psych/Mental Status: Mood NL Vitals Vitals Vital Signs Date Time Temp Pulse Resp B/P (MAP) Pulse Ox O2 Delivery O2 Flow Rate FiO2 11/15/16 07:00 97.8 56 16 102/63 (76) 96 Room Air 97.8 Labs Labs Laboratory Tests Test 11/14/16 18:45 11/14/16 20:33 11/15/16 04:35 White Blood Count 8.5 x10^3/uL (4.0-11.0) 8.2 x10^3/uL (4.0-11.0) Red Blood Count 3.83 x10^6/uL (4.30-5.70) 3.71 x10^6/uL (4.30-5.70) Hemoglobin 12.9 g/dL (13.0-17.5) 12.6 g/dL (13.0-17.5) Hematocrit 38.2 % (39.0-53.0) 36.6 % (39.0-53.0) Mean Corpuscular Volume 100 fL (79-100) 99 fL (79-100) Mean Corpuscular Hemoglobin 34 pg (25-35) 34 pg (25-35) Mean Corpuscular Hemoglobin Concent 34 g/dL (31-37) 34 g/dL (31-37) Red Cell Distribution Width 13.2 % (11.5-14.5) 13.4 % (11.5-14.5) Platelet Count 202 x10^3/uL (140-400) 207 x10^3/uL (140-400) Neutrophils (%) (Auto) 94 % (31-73) 78 % (31-73) Lymphocytes (%) (Auto) 5 % (24-48) 11 % (24-48) Monocytes (%) (Auto) 1 % (0-9) 10 % (0-9) Eosinophils (%) (Auto) 0 % (0-3) 0 % (0-3) Basophils (%) (Auto) 0 % (0-3) 0 % (0-3) Neutrophils # (Auto) 7.9 x10^3uL (1.8-7.7) 6.4 x10^3uL (1.8-7.7) Lymphocytes # (Auto) 0.4 x10^3/uL (1.0-4.8) 0.9 x10^3/uL (1.0-4.8) Monocytes # (Auto) 0.1 x10^3/uL (0.0-1.1) 0.9 x10^3/uL (0.0-1.1) Eosinophils # (Auto) 0.0 x10^3/uL (0.0-0.7) 0.0 x10^3/uL (0.0-0.7) Basophils # (Auto) 0.0 x10^3/uL (0.0-0.2) 0.0 x10^3/uL (0.0-0.2) Segmented Neutrophils % 82 % (35-66) Band Neutrophils % 13 % (0-9) Lymphocytes % 3 % (24-48) Monocytes % 1 % (0-10) Eosinophils % 1 % (0-5) Platelet Estimate Adequate (ADEQUATE) Prothrombin Time 12.9 SEC (11.7-14.0) Prothromb Time International Ratio 1.0 (0.8-1.1) Activated Partial Thromboplast Time 28 SEC (24-38) D-Dimer (Danisha) 0.27 ug/mlFEU (0.00-0.50) Sodium Level 140 mmol/L (136-145) 141 mmol/L (136-145) Potassium Level 4.0 mmol/L (3.5-5.1) 4.2 mmol/L (3.5-5.1) Chloride Level 102 mmol/L (98-107) 106 mmol/L (98-107) Carbon Dioxide Level 28 mmol/L (21-32) 29 mmol/L (21-32) Anion Gap 10 (6-14) 6 (6-14) Blood Urea Nitrogen 14 mg/dL (8-26) 11 mg/dL (8-26) Creatinine 0.9 mg/dL (0.7-1.3) 0.8 mg/dL (0.7-1.3) Estimated GFR (Cockcroft-Gault) 86.7 99.3 BUN/Creatinine Ratio 16 (6-20) Glucose Level 143 mg/dL (70-99) 106 mg/dL (70-99) Calcium Level 9.1 mg/dL (8.5-10.1) 8.5 mg/dL (8.5-10.1) Total Bilirubin 0.5 mg/dL (0.2-1.0) Aspartate Amino Transf (AST/SGOT) 27 U/L (15-37) Alanine Aminotransferase (ALT/SGPT) 41 U/L (16-63) Alkaline Phosphatase 89 U/L (46-116) Troponin I Quantitative < 0.017 ng/mL (0.000-0.055) < 0.017 ng/mL (0.000-0.055) LW-Emp-F-Type Natriuretic Peptide 108 pg/mL (0-124) Total Protein 6.7 g/dL (6.4-8.2) Albumin 3.7 g/dL (3.4-5.0) Albumin/Globulin Ratio 1.2 (1.0-1.7) Lipase 79 U/L (73-393) Urine Collection Type Unknown Urine Color Yellow Urine Clarity Cloudy Urine pH 6.0 Urine Specific [place] 1.025 Urine Protein Negative mg/dL (NEG-TRACE) Urine Glucose (UA) Negative mg/dL (NEG) Urine Ketones (Stick) Negative mg/dL (NEG) Urine Blood Small (NEG) Urine Nitrite Negative (NEG) Urine Bilirubin Negative (NEG) Urine Urobilinogen Dipstick 0.2 mg/dL (0.2 mg/dL) Urine Leukocyte Esterase Negative (NEG) Urine RBC 6-10 /HPF (0-2) Urine WBC 1-4 /HPF (0-4) Urine Bacteria 0 /HPF (0-FEW) Urine Mucus Marked /LPF Laboratory Tests Test 11/14/16 18:45 11/14/16 20:33 11/15/16 04:35 White Blood Count 8.5 x10^3/uL (4.0-11.0) 8.2 x10^3/uL (4.0-11.0) Red Blood Count 3.83 x10^6/uL (4.30-5.70) 3.71 x10^6/uL (4.30-5.70) Hemoglobin 12.9 g/dL (13.0-17.5) 12.6 g/dL (13.0-17.5) Hematocrit 38.2 % (39.0-53.0) 36.6 % (39.0-53.0) Mean Corpuscular Volume 100 fL (79-100) 99 fL (79-100) Mean Corpuscular Hemoglobin 34 pg (25-35) 34 pg (25-35) Mean Corpuscular Hemoglobin Concent 34 g/dL (31-37) 34 g/dL (31-37) Red Cell Distribution Width 13.2 % (11.5-14.5) 13.4 % (11.5-14.5) Platelet Count 202 x10^3/uL (140-400) 207 x10^3/uL (140-400) Neutrophils (%) (Auto) 94 % (31-73) 78 % (31-73) Lymphocytes (%) (Auto) 5 % (24-48) 11 % (24-48) Monocytes (%) (Auto) 1 % (0-9) 10 % (0-9) Eosinophils (%) (Auto) 0 % (0-3) 0 % (0-3) Basophils (%) (Auto) 0 % (0-3) 0 % (0-3) Neutrophils # (Auto) 7.9 x10^3uL (1.8-7.7) 6.4 x10^3uL (1.8-7.7) Lymphocytes # (Auto) 0.4 x10^3/uL (1.0-4.8) 0.9 x10^3/uL (1.0-4.8) Monocytes # (Auto) 0.1 x10^3/uL (0.0-1.1) 0.9 x10^3/uL (0.0-1.1) Eosinophils # (Auto) 0.0 x10^3/uL (0.0-0.7) 0.0 x10^3/uL (0.0-0.7) Basophils # (Auto) 0.0 x10^3/uL (0.0-0.2) 0.0 x10^3/uL (0.0-0.2) Segmented Neutrophils % 82 % (35-66) Band Neutrophils % 13 % (0-9) Lymphocytes % 3 % (24-48) Monocytes % 1 % (0-10) Eosinophils % 1 % (0-5) Platelet Estimate Adequate (ADEQUATE) Prothrombin Time 12.9 SEC (11.7-14.0) Prothromb Time International Ratio 1.0 (0.8-1.1) Activated Partial Thromboplast Time 28 SEC (24-38) D-Dimer (Danisha) 0.27 ug/mlFEU (0.00-0.50) Sodium Level 140 mmol/L (136-145) 141 mmol/L (136-145) Potassium Level 4.0 mmol/L (3.5-5.1) 4.2 mmol/L (3.5-5.1) Chloride Level 102 mmol/L (98-107) 106 mmol/L (98-107) Carbon Dioxide Level 28 mmol/L (21-32) 29 mmol/L (21-32) Anion Gap 10 (6-14) 6 (6-14) Blood Urea Nitrogen 14 mg/dL (8-26) 11 mg/dL (8-26) Creatinine 0.9 mg/dL (0.7-1.3) 0.8 mg/dL (0.7-1.3) Estimated GFR (Cockcroft-Gault) 86.7 99.3 BUN/Creatinine Ratio 16 (6-20) Glucose Level 143 mg/dL (70-99) 106 mg/dL (70-99) Calcium Level 9.1 mg/dL (8.5-10.1) 8.5 mg/dL (8.5-10.1) Total Bilirubin 0.5 mg/dL (0.2-1.0) Aspartate Amino Transf (AST/SGOT) 27 U/L (15-37) Alanine Aminotransferase (ALT/SGPT) 41 U/L (16-63) Alkaline Phosphatase 89 U/L (46-116) Troponin I Quantitative < 0.017 ng/mL (0.000-0.055) < 0.017 ng/mL (0.000-0.055) ED-Uwr-B-Type Natriuretic Peptide 108 pg/mL (0-124) Total Protein 6.7 g/dL (6.4-8.2) Albumin 3.7 g/dL (3.4-5.0) Albumin/Globulin Ratio 1.2 (1.0-1.7) Lipase 79 U/L (73-393) Urine Collection Type Unknown Urine Color Yellow Urine Clarity Cloudy Urine pH 6.0 Urine Specific [place] 1.025 Urine Protein Negative mg/dL (NEG-TRACE) Urine Glucose (UA) Negative mg/dL (NEG) Urine Ketones (Stick) Negative mg/dL (NEG) Urine Blood Small (NEG) Urine Nitrite Negative (NEG) Urine Bilirubin Negative (NEG) Urine Urobilinogen Dipstick 0.2 mg/dL (0.2 mg/dL) Urine Leukocyte Esterase Negative (NEG) Urine RBC 6-10 /HPF (0-2) Urine WBC 1-4 /HPF (0-4) Urine Bacteria 0 /HPF (0-FEW) Urine Mucus Marked /LPF VTE Prophylaxis Ordered VTE Prophylaxis Devices: No VTE Pharmacological Prophylaxi: Yes Assessment/Plan Assessment/Plan acute abd pain pneumoperitoneum on Xray post surg, consult gen surg to follow, seems to be improving slowly NPO, iv fluid chest pain, above would reasonably explain Left arm weaness, numbness and tingling, consider as TIA< check lipids, carotids, hold on MRI until cleared for long imaging by Gen surg, still NPO, may need intervention on abd tobaccoism, cessation asthma, inhl, long and short and steroid macrocytic anemia, with small EtOH reported, he may be underestimating EtOH intake of 4/day check folate and B12 check lipids, labs look good, admit KATIE PERKINS MD Nov 15, 2016 09:08
--- NOTE | 2016-11-15 09:30 | RAD ---
Carotid ultrasound, 11/15/2016: History: TIA Duplex evaluation of the carotid arteries in the neck was performed including grayscale, color-flow and spectral Doppler analysis. There is minimal smooth plaquing at both carotid bifurcations. The peak systolic velocity in the right internal carotid artery is 49 cm/s with an end-diastolic velocity of 19 cm/s. The peak systolic velocity in the left internal carotid artery is 85 cm/s within the diastolic velocity of 28 cm/s. The Doppler findings suggest only minimal narrowing in the 0-50% diameter range. Antegrade flow is present in both vertebral arteries in the neck. IMPRESSION: Minimal smooth atherosclerotic plaquing at both carotid bifurcations without significant stenosis. Note: Stenosis calculations for CTA, MRA and conventional angiography are based upon determination of the distal ICA diameter in accordance with the NASCET methodology. Stenosis calculations for Doppler studies are derived from validated velocity criteria which are known to correlate with NASCET methodology of determining stenosis.
[2016-11-15] MEDS: THIAMINE 100 MG in IV NORMAL SALINE 50ML 50 ML IV SCH (09:35)
[2016-11-15 10:58] VITALS: BP 99/64
[2016-11-15] MEDS: ALBUTEROL SULFATE 2.5 MG/3 ML NEBU. NEB SCH ×4 (11:48→23:48)
--- NOTE | 2016-11-15 12:45 | PDOC2 ---
CONSULT Date of Consult Date of Consult DATE: 11/15/16 TIME: 12:37 Reason for Consult Reason for Consult: abdominal pain, s/p hernia repair Referring Physician Referring Physician: ER Identification/Chief Complaint Chief Complaint abdominal pain Problems: Source Source: Chart review, Patient History of Present Illness Reason for Visit: Underwent lap RIH with mesh and open umbo repair yesterday. Last evening after discharging home developed bloating, worsening pain, nausea. By the time he got to ER developed chest pain and arm numbness. He has had similar chest pains in past. Currently thirsty, pain is improved and less bloated--pain is aggravated by movement Evaluated by cardiology, no work up at this point ordered Concern for pneumoperitoneum on CT Past Medical History Cardiovascular: No pertinent hx Pulmonary: Asthma CENTRAL NERVOUS SYSTEM: Vertigo GI: No pertinent hx Heme/Onc: No pertinent hx Hepatobiliary: No pertinent hx Psych: No pertinent hx Rheumatologic: No pertinent hx Infectious disease: No pertinent hx ENT: No pertinent hx Renal/: No pertinent hx Endocrine: No pertinent hx Dermatology: No pertinent hx Past Surgical History Past Surgical History: Hernia Repair (11/14/16) Family History Family History: Other (noncontributory ) Social History <1 pack per day ALCOHOL: other (3-4 beers per day) Drugs: None Lives: Alone Current Problem List Problem List Problems Medical Problems: (1) Abdominal pain Status: Acute (2) Chest pain Status: Acute (3) TIA (transient ischemic attack) Status: Acute Current Medications Current Medications Current Medications Sodium Chloride 1,000 ml @ 1,000 mls/hr 1X ONCE IV Last administered on 18:56; Start 11/14/16 at 19:00; Stop 11/14/16 at 19:59; Status DC Iohexol (Omnipaque 300 Mg/ml) 75 ml 1X ONCE IV Last administered on 11/14/16 20:15; Start 11/14/16 at 20:15; Stop 11/14/16 at 20:16; Status DC Info (Do NOT chart on this entry -- for MONITORING) 1 each PRN DAILY PRN MC SEE COMMENTS; Start 11/14/16 at 20:15; Stop 11/16/16 at 20:14 Morphine Sulfate 4 mg PRN Q15MIN PRN IV/SQ PAIN GREATER THAN 3/10 Last administered on 11/14/16 21:41; Start 11/14/16 at 21:30; Stop 11/15/16 at 08:23; Status DC Ondansetron HCl (Zofran) 4 mg PRN Q8HRS PRN IV NAUSEA/VOMITING; Start 11/14/16 at 22:30; Stop 11/15/16 at 22:29 Morphine Sulfate 2 mg PRN Q2HR PRN IV PAIN Last administered on 11/15/16 05:52 ; Start 11/14/16 at 22:30; Stop 11/15/16 at 08:23; Status DC Acetaminophen (Tylenol) 650 mg PRN Q4HRS PRN PO FEVER; Start 11/14/16 at 22:30; Stop 11/15/16 at 22:29 Aspirin (Ecotrin) 81 mg 1X ONCE PO ; Start 11/14/16 at 22:45; Stop 11/14/16 at 22 :46; Status DC Albuterol Sulfate (Ventolin Neb Soln) 2.5 mg Q4HRS NEB Last administered on 11/15 11:48; Start 11/15/16 at 12:00 Budesonide (Pulmicort) 0.5 mg RTBID NEB ; Start 11/15/16 at 20:00 Morphine Sulfate 4 mg PRN Q2HR PRN IV PAIN Last administered on 11/15/16 08:53 ; Start 11/15/16 at 08:30 Fentanyl Citrate (Fentanyl 2ml Vial) 75 mcg PRN Q2HR PRN IV PAIN; Start at 08:30 Potassium Chloride/Dextrose/ Sod Cl 1,000 ml @ 100 mls/hr Q10H IV Last administered on 11/15/16 08:45; Start 11/15/16 at 08:30 Thiamine HCl 100 mg/Sodium Chloride 51 ml @ 102 mls/hr DAILY IV Last administered on 11/15/16 09:35; Start 11/15/16 at 09:00 Nicotine (Nicoderm Cq 7mg) 1 patch PRN DAILY PRN TD SMOKING CESSATION; Start at 08:45 Nicotine Polacrilex (Nicorette Gum) 1 each PRN Q1HR PRN BC SMOKING CESSATION; Start 11/15/16 at 08:45 Active Scripts Active Reported Ventolin Hfa Inhaler (Albuterol Sulfate) 18 Gm Hfa.aer.ad 2 Puff INH Q4HRS Advair 100-50 Diskus (Fluticasone/Salmeterol) 1 Each Disk.w.dev 1 Puff IH BID Allergies Allergies: Coded Allergies: No Known Drug Allergies (Unverified , 11/14/16) ROS General: YES: Chills, No: Other (fevers) PSYCHOLOGICAL ROS: No: Anxiety, Depression Eyes: No Blurry vision, No Double vision HEENT: No: Heacaches, Sore Throat Hematological and Lymphatic: No: Bleeding Problems, Blood Clots Respiratory: YES: Shortness of breath, No: Cough Cardiovascular: yes Chest Pain, No Palpitations Gastrointestinal: Yes Other (see hpi) Genitourinary: No Dysuria, No Hematuria Musculoskeletal: No Joint Pain, No Muscle Pain Neurological: No Confusion, No Memory Loss Skin: No Pruritus, No Rash Physical Exam General: Alert, Oriented X3, Cooperative, No acute distress HEENT: PERRLA, Mucous membr. moist/pink Lungs: Clear to auscultation, Normal air movement Heart: Regular rate, Normal S1, Normal S2, No murmurs Abdomen: Soft, Other (mild distention, incisional TTP, no guarding or rebound, dressings dry ) Extremities: No clubbing, No cyanosis Skin: No rashes, No breakdown Neuro: Normal speech, Sensation intact Psych/Mental Status: Mental status NL, Mood NL MUSCULOSKELETAL: No deformity, No swelling Vitals VITALS Vital Signs Date Time Temp Pulse Resp B/P (MAP) Pulse Ox O2 Delivery O2 Flow Rate FiO2 11/15/16 11:54 Room Air 11/15/16 10:58 97.6 53 16 99/64 (76) 97 97.6 Labs Labs Laboratory Tests Test 11/14/16 18:45 11/14/16 20:33 11/15/16 04:35 11/15/16 10:30 White Blood Count 8.5 x10^3/uL (4.0-11.0) 8.2 x10^3/uL (4.0-11.0) Red Blood Count 3.83 x10^6/uL (4.30-5.70) 3.71 x10^6/uL (4.30-5.70) Hemoglobin 12.9 g/dL (13.0-17.5) 12.6 g/dL (13.0-17.5) Hematocrit 38.2 % (39.0-53.0) 36.6 % (39.0-53.0) Mean Corpuscular Volume 100 fL (79-100) 99 fL (79-100) Mean Corpuscular Hemoglobin 34 pg (25-35) 34 pg (25-35) Mean Corpuscular Hemoglobin Concent 34 g/dL (31-37) 34 g/dL (31-37) Red Cell Distribution Width 13.2 % (11.5-14.5) 13.4 % (11.5-14.5) Platelet Count 202 x10^3/uL (140-400) 207 x10^3/uL (140-400) Neutrophils (%) (Auto) 94 % (31-73) 78 % (31-73) Lymphocytes (%) (Auto) 5 % (24-48) 11 % (24-48) Monocytes (%) (Auto) 1 % (0-9) 10 % (0-9) Eosinophils (%) (Auto) 0 % (0-3) 0 % (0-3) Basophils (%) (Auto) 0 % (0-3) 0 % (0-3) Neutrophils # (Auto) 7.9 x10^3uL (1.8-7.7) 6.4 x10^3uL (1.8-7.7) Lymphocytes # (Auto) 0.4 x10^3/uL (1.0-4.8) 0.9 x10^3/uL (1.0-4.8) Monocytes # (Auto) 0.1 x10^3/uL (0.0-1.1) 0.9 x10^3/uL (0.0-1.1) Eosinophils # (Auto) 0.0 x10^3/uL (0.0-0.7) 0.0 x10^3/uL (0.0-0.7) Basophils # (Auto) 0.0 x10^3/uL (0.0-0.2) 0.0 x10^3/uL (0.0-0.2) Segmented Neutrophils % 82 % (35-66) Band Neutrophils % 13 % (0-9) Lymphocytes % 3 % (24-48) Monocytes % 1 % (0-10) Eosinophils % 1 % (0-5) Platelet Estimate Adequate (ADEQUATE) Prothrombin Time 12.9 SEC (11.7-14.0) Prothromb Time International Ratio 1.0 (0.8-1.1) Activated Partial Thromboplast Time 28 SEC (24-38) D-Dimer (Danisha) 0.27 ug/mlFEU (0.00-0.50) Sodium Level 140 mmol/L (136-145) 141 mmol/L (136-145) Potassium Level 4.0 mmol/L (3.5-5.1) 4.2 mmol/L (3.5-5.1) Chloride Level 102 mmol/L (98-107) 106 mmol/L (98-107) Carbon Dioxide Level 28 mmol/L (21-32) 29 mmol/L (21-32) Anion Gap 10 (6-14) 6 (6-14) Blood Urea Nitrogen 14 mg/dL (8-26) 11 mg/dL (8-26) Creatinine 0.9 mg/dL (0.7-1.3) 0.8 mg/dL (0.7-1.3) Estimated GFR (Cockcroft-Gault) 86.7 99.3 BUN/Creatinine Ratio 16 (6-20) Glucose Level 143 mg/dL (70-99) 106 mg/dL (70-99) Calcium Level 9.1 mg/dL (8.5-10.1) 8.5 mg/dL (8.5-10.1) Total Bilirubin 0.5 mg/dL (0.2-1.0) Aspartate Amino Transf (AST/SGOT) 27 U/L (15-37) Alanine Aminotransferase (ALT/SGPT) 41 U/L (16-63) Alkaline Phosphatase 89 U/L (46-116) Troponin I Quantitative < 0.017 ng/mL (0.000-0.055) < 0.017 ng/mL (0.000-0.055) < 0.017 ng/mL (0.000-0.055) DS-Rzg-P-Type Natriuretic Peptide 108 pg/mL (0-124) Total Protein 6.7 g/dL (6.4-8.2) Albumin 3.7 g/dL (3.4-5.0) Albumin/Globulin Ratio 1.2 (1.0-1.7) Lipase 79 U/L (73-393) Urine Collection Type Unknown Urine Color Yellow Urine Clarity Cloudy Urine pH 6.0 Urine Specific [place] 1.025 Urine Protein Negative mg/dL (NEG-TRACE) Urine Glucose (UA) Negative mg/dL (NEG) Urine Ketones (Stick) Negative mg/dL (NEG) Urine Blood Small (NEG) Urine Nitrite Negative (NEG) Urine Bilirubin Negative (NEG) Urine Urobilinogen Dipstick 0.2 mg/dL (0.2 mg/dL) Urine Leukocyte Esterase Negative (NEG) Urine RBC 6-10 /HPF (0-2) Urine WBC 1-4 /HPF (0-4) Urine Bacteria 0 /HPF (0-FEW) Urine Mucus Marked /LPF Laboratory Tests Test 11/14/16 18:45 11/14/16 20:33 11/15/16 04:35 11/15/16 10:30 White Blood Count 8.5 x10^3/uL (4.0-11.0) 8.2 x10^3/uL (4.0-11.0) Red Blood Count 3.83 x10^6/uL (4.30-5.70) 3.71 x10^6/uL (4.30-5.70) Hemoglobin 12.9 g/dL (13.0-17.5) 12.6 g/dL (13.0-17.5) Hematocrit 38.2 % (39.0-53.0) 36.6 % (39.0-53.0) Mean Corpuscular Volume 100 fL (79-100) 99 fL (79-100) Mean Corpuscular Hemoglobin 34 pg (25-35) 34 pg (25-35) Mean Corpuscular Hemoglobin Concent 34 g/dL (31-37) 34 g/dL (31-37) Red Cell Distribution Width 13.2 % (11.5-14.5) 13.4 % (11.5-14.5) Platelet Count 202 x10^3/uL (140-400) 207 x10^3/uL (140-400) Neutrophils (%) (Auto) 94 % (31-73) 78 % (31-73) Lymphocytes (%) (Auto) 5 % (24-48) 11 % (24-48) Monocytes (%) (Auto) 1 % (0-9) 10 % (0-9) Eosinophils (%) (Auto) 0 % (0-3) 0 % (0-3) Basophils (%) (Auto) 0 % (0-3) 0 % (0-3) Neutrophils # (Auto) 7.9 x10^3uL (1.8-7.7) 6.4 x10^3uL (1.8-7.7) Lymphocytes # (Auto) 0.4 x10^3/uL (1.0-4.8) 0.9 x10^3/uL (1.0-4.8) Monocytes # (Auto) 0.1 x10^3/uL (0.0-1.1) 0.9 x10^3/uL (0.0-1.1) Eosinophils # (Auto) 0.0 x10^3/uL (0.0-0.7) 0.0 x10^3/uL (0.0-0.7) Basophils # (Auto) 0.0 x10^3/uL (0.0-0.2) 0.0 x10^3/uL (0.0-0.2) Segmented Neutrophils % 82 % (35-66) Band Neutrophils % 13 % (0-9) Lymphocytes % 3 % (24-48) Monocytes % 1 % (0-10) Eosinophils % 1 % (0-5) Platelet Estimate Adequate (ADEQUATE) Prothrombin Time 12.9 SEC (11.7-14.0) Prothromb Time International Ratio 1.0 (0.8-1.1) Activated Partial Thromboplast Time 28 SEC (24-38) D-Dimer (Danisha) 0.27 ug/mlFEU (0.00-0.50) Sodium Level 140 mmol/L (136-145) 141 mmol/L (136-145) Potassium Level 4.0 mmol/L (3.5-5.1) 4.2 mmol/L (3.5-5.1) Chloride Level 102 mmol/L (98-107) 106 mmol/L (98-107) Carbon Dioxide Level 28 mmol/L (21-32) 29 mmol/L (21-32) Anion Gap 10 (6-14) 6 (6-14) Blood Urea Nitrogen 14 mg/dL (8-26) 11 mg/dL (8-26) Creatinine 0.9 mg/dL (0.7-1.3) 0.8 mg/dL (0.7-1.3) Estimated GFR (Cockcroft-Gault) 86.7 99.3 BUN/Creatinine Ratio 16 (6-20) Glucose Level 143 mg/dL (70-99) 106 mg/dL (70-99) Calcium Level 9.1 mg/dL (8.5-10.1) 8.5 mg/dL (8.5-10.1) Total Bilirubin 0.5 mg/dL (0.2-1.0) Aspartate Amino Transf (AST/SGOT) 27 U/L (15-37) Alanine Aminotransferase (ALT/SGPT) 41 U/L (16-63) Alkaline Phosphatase 89 U/L (46-116) Troponin I Quantitative < 0.017 ng/mL (0.000-0.055) < 0.017 ng/mL (0.000-0.055) < 0.017 ng/mL (0.000-0.055) MX-Iwh-K-Type Natriuretic Peptide 108 pg/mL (0-124) Total Protein 6.7 g/dL (6.4-8.2) Albumin 3.7 g/dL (3.4-5.0) Albumin/Globulin Ratio 1.2 (1.0-1.7) Lipase 79 U/L (73-393) Urine Collection Type Unknown Urine Color Yellow Urine Clarity Cloudy Urine pH 6.0 Urine Specific [place] 1.025 Urine Protein Negative mg/dL (NEG-TRACE) Urine Glucose (UA) Negative mg/dL (NEG) Urine Ketones (Stick) Negative mg/dL (NEG) Urine Blood Small (NEG) Urine Nitrite Negative (NEG) Urine Bilirubin Negative (NEG) Urine Urobilinogen Dipstick 0.2 mg/dL (0.2 mg/dL) Urine Leukocyte Esterase Negative (NEG) Urine RBC 6-10 /HPF (0-2) Urine WBC 1-4 /HPF (0-4) Urine Bacteria 0 /HPF (0-FEW) Urine Mucus Marked /LPF Assessment/Plan Assessment/Plan abdominal pain, pneumoperitoneum--likely postop in nature--benign abdominal exam --has improvement in pain and aggravated by movement, no fevers, normal WBC chest pain--cardiac evaluated, could be referred postop pain--plans for Outpt workup, has had previous cp arm numbness, weakness, and tingling--previous issue, now worse will review with Dr Oseguera, continue observation CHELO MARIE APRN Nov 15, 2016 12:45
[2016-11-15 15:00] VITALS: BP 119/71
--- NOTE | 2016-11-15 16:40 | PDOC2 ---
NEUROLOGY CONSULT Date of Admission Date of Admission Full Report Dictated DATE: 11/15/16 TIME: 16:38 Current Medications Current Medications Current Medications Sodium Chloride 1,000 ml @ 1,000 mls/hr 1X ONCE IV Last administered on 18:56; Start 11/14/16 at 19:00; Stop 11/14/16 at 19:59; Status DC Iohexol (Omnipaque 300 Mg/ml) 75 ml 1X ONCE IV Last administered on 11/14/16 20:15; Start 11/14/16 at 20:15; Stop 11/14/16 at 20:16; Status DC Info (Do NOT chart on this entry -- for MONITORING) 1 each PRN DAILY PRN MC SEE COMMENTS; Start 11/14/16 at 20:15; Stop 11/16/16 at 20:14 Morphine Sulfate 4 mg PRN Q15MIN PRN IV/SQ PAIN GREATER THAN 3/10 Last administered on 11/14/16 21:41; Start 11/14/16 at 21:30; Stop 11/15/16 at 08:23; Status DC Ondansetron HCl (Zofran) 4 mg PRN Q8HRS PRN IV NAUSEA/VOMITING; Start 11/14/16 at 22:30; Stop 11/15/16 at 22:29 Morphine Sulfate 2 mg PRN Q2HR PRN IV PAIN Last administered on 11/15/16 05:52 ; Start 11/14/16 at 22:30; Stop 11/15/16 at 08:23; Status DC Acetaminophen (Tylenol) 650 mg PRN Q4HRS PRN PO FEVER; Start 11/14/16 at 22:30; Stop 11/15/16 at 22:29 Aspirin (Ecotrin) 81 mg 1X ONCE PO ; Start 11/14/16 at 22:45; Stop 11/14/16 at 22 :46; Status DC Albuterol Sulfate (Ventolin Neb Soln) 2.5 mg Q4HRS NEB Last administered on 11/15 16:29; Start 11/15/16 at 12:00 Budesonide (Pulmicort) 0.5 mg RTBID NEB ; Start 11/15/16 at 20:00 Morphine Sulfate 4 mg PRN Q2HR PRN IV PAIN Last administered on 11/15/16 13:06 ; Start 11/15/16 at 08:30 Fentanyl Citrate (Fentanyl 2ml Vial) 75 mcg PRN Q2HR PRN IV PAIN; Start at 08:30 Potassium Chloride/Dextrose/ Sod Cl 1,000 ml @ 100 mls/hr Q10H IV Last administered on 11/15/16 08:45; Start 11/15/16 at 08:30 Thiamine HCl 100 mg/Sodium Chloride 51 ml @ 102 mls/hr DAILY IV Last administered on 11/15/16 09:35; Start 11/15/16 at 09:00 Nicotine (Nicoderm Cq 7mg) 1 patch PRN DAILY PRN TD SMOKING CESSATION; Start at 08:45 Nicotine Polacrilex (Nicorette Gum) 1 each PRN Q1HR PRN BC SMOKING CESSATION; Start 11/15/16 at 08:45 Active Scripts Active Reported Ventolin Hfa Inhaler (Albuterol Sulfate) 18 Gm Hfa.aer.ad 2 Puff INH Q4HRS Advair 100-50 Diskus (Fluticasone/Salmeterol) 1 Each Disk.w.dev 1 Puff IH BID Allergies Allergies: Coded Allergies: No Known Drug Allergies (Unverified , 11/14/16) Vitals VITALS Vital Signs Date Time Temp Pulse Resp B/P (MAP) Pulse Ox O2 Delivery O2 Flow Rate FiO2 11/15/16 16:30 Room Air 11/15/16 15:00 97.7 59 16 119/71 (87) 100 97.7 Labs Labs Laboratory Tests Test 11/14/16 18:45 11/14/16 20:33 11/15/16 04:35 11/15/16 10:30 White Blood Count 8.5 x10^3/uL (4.0-11.0) 8.2 x10^3/uL (4.0-11.0) Red Blood Count 3.83 x10^6/uL (4.30-5.70) 3.71 x10^6/uL (4.30-5.70) Hemoglobin 12.9 g/dL (13.0-17.5) 12.6 g/dL (13.0-17.5) Hematocrit 38.2 % (39.0-53.0) 36.6 % (39.0-53.0) Mean Corpuscular Volume 100 fL (79-100) 99 fL (79-100) Mean Corpuscular Hemoglobin 34 pg (25-35) 34 pg (25-35) Mean Corpuscular Hemoglobin Concent 34 g/dL (31-37) 34 g/dL (31-37) Red Cell Distribution Width 13.2 % (11.5-14.5) 13.4 % (11.5-14.5) Platelet Count 202 x10^3/uL (140-400) 207 x10^3/uL (140-400) Neutrophils (%) (Auto) 94 % (31-73) 78 % (31-73) Lymphocytes (%) (Auto) 5 % (24-48) 11 % (24-48) Monocytes (%) (Auto) 1 % (0-9) 10 % (0-9) Eosinophils (%) (Auto) 0 % (0-3) 0 % (0-3) Basophils (%) (Auto) 0 % (0-3) 0 % (0-3) Neutrophils # (Auto) 7.9 x10^3uL (1.8-7.7) 6.4 x10^3uL (1.8-7.7) Lymphocytes # (Auto) 0.4 x10^3/uL (1.0-4.8) 0.9 x10^3/uL (1.0-4.8) Monocytes # (Auto) 0.1 x10^3/uL (0.0-1.1) 0.9 x10^3/uL (0.0-1.1) Eosinophils # (Auto) 0.0 x10^3/uL (0.0-0.7) 0.0 x10^3/uL (0.0-0.7) Basophils # (Auto) 0.0 x10^3/uL (0.0-0.2) 0.0 x10^3/uL (0.0-0.2) Segmented Neutrophils % 82 % (35-66) Band Neutrophils % 13 % (0-9) Lymphocytes % 3 % (24-48) Monocytes % 1 % (0-10) Eosinophils % 1 % (0-5) Platelet Estimate Adequate (ADEQUATE) Prothrombin Time 12.9 SEC (11.7-14.0) Prothromb Time International Ratio 1.0 (0.8-1.1) Activated Partial Thromboplast Time 28 SEC (24-38) D-Dimer (Danisha) 0.27 ug/mlFEU (0.00-0.50) Sodium Level 140 mmol/L (136-145) 141 mmol/L (136-145) Potassium Level 4.0 mmol/L (3.5-5.1) 4.2 mmol/L (3.5-5.1) Chloride Level 102 mmol/L (98-107) 106 mmol/L (98-107) Carbon Dioxide Level 28 mmol/L (21-32) 29 mmol/L (21-32) Anion Gap 10 (6-14) 6 (6-14) Blood Urea Nitrogen 14 mg/dL (8-26) 11 mg/dL (8-26) Creatinine 0.9 mg/dL (0.7-1.3) 0.8 mg/dL (0.7-1.3) Estimated GFR (Cockcroft-Gault) 86.7 99.3 BUN/Creatinine Ratio 16 (6-20) Glucose Level 143 mg/dL (70-99) 106 mg/dL (70-99) Calcium Level 9.1 mg/dL (8.5-10.1) 8.5 mg/dL (8.5-10.1) Total Bilirubin 0.5 mg/dL (0.2-1.0) Aspartate Amino Transf (AST/SGOT) 27 U/L (15-37) Alanine Aminotransferase (ALT/SGPT) 41 U/L (16-63) Alkaline Phosphatase 89 U/L (46-116) Troponin I Quantitative < 0.017 ng/mL (0.000-0.055) < 0.017 ng/mL (0.000-0.055) < 0.017 ng/mL (0.000-0.055) QN-Zpu-F-Type Natriuretic Peptide 108 pg/mL (0-124) Total Protein 6.7 g/dL (6.4-8.2) Albumin 3.7 g/dL (3.4-5.0) Albumin/Globulin Ratio 1.2 (1.0-1.7) Lipase 79 U/L (73-393) Urine Collection Type Unknown Urine Color Yellow Urine Clarity Cloudy Urine pH 6.0 Urine Specific [place] 1.025 Urine Protein Negative mg/dL (NEG-TRACE) Urine Glucose (UA) Negative mg/dL (NEG) Urine Ketones (Stick) Negative mg/dL (NEG) Urine Blood Small (NEG) Urine Nitrite Negative (NEG) Urine Bilirubin Negative (NEG) Urine Urobilinogen Dipstick 0.2 mg/dL (0.2 mg/dL) Urine Leukocyte Esterase Negative (NEG) Urine RBC 6-10 /HPF (0-2) Urine WBC 1-4 /HPF (0-4) Urine Bacteria 0 /HPF (0-FEW) Urine Mucus Marked /LPF Laboratory Tests Test 11/14/16 18:45 11/14/16 20:33 11/15/16 04:35 11/15/16 10:30 White Blood Count 8.5 x10^3/uL (4.0-11.0) 8.2 x10^3/uL (4.0-11.0) Red Blood Count 3.83 x10^6/uL (4.30-5.70) 3.71 x10^6/uL (4.30-5.70) Hemoglobin 12.9 g/dL (13.0-17.5) 12.6 g/dL (13.0-17.5) Hematocrit 38.2 % (39.0-53.0) 36.6 % (39.0-53.0) Mean Corpuscular Volume 100 fL (79-100) 99 fL (79-100) Mean Corpuscular Hemoglobin 34 pg (25-35) 34 pg (25-35) Mean Corpuscular Hemoglobin Concent 34 g/dL (31-37) 34 g/dL (31-37) Red Cell Distribution Width 13.2 % (11.5-14.5) 13.4 % (11.5-14.5) Platelet Count 202 x10^3/uL (140-400) 207 x10^3/uL (140-400) Neutrophils (%) (Auto) 94 % (31-73) 78 % (31-73) Lymphocytes (%) (Auto) 5 % (24-48) 11 % (24-48) Monocytes (%) (Auto) 1 % (0-9) 10 % (0-9) Eosinophils (%) (Auto) 0 % (0-3) 0 % (0-3) Basophils (%) (Auto) 0 % (0-3) 0 % (0-3) Neutrophils # (Auto) 7.9 x10^3uL (1.8-7.7) 6.4 x10^3uL (1.8-7.7) Lymphocytes # (Auto) 0.4 x10^3/uL (1.0-4.8) 0.9 x10^3/uL (1.0-4.8) Monocytes # (Auto) 0.1 x10^3/uL (0.0-1.1) 0.9 x10^3/uL (0.0-1.1) Eosinophils # (Auto) 0.0 x10^3/uL (0.0-0.7) 0.0 x10^3/uL (0.0-0.7) Basophils # (Auto) 0.0 x10^3/uL (0.0-0.2) 0.0 x10^3/uL (0.0-0.2) Segmented Neutrophils % 82 % (35-66) Band Neutrophils % 13 % (0-9) Lymphocytes % 3 % (24-48) Monocytes % 1 % (0-10) Eosinophils % 1 % (0-5) Platelet Estimate Adequate (ADEQUATE) Prothrombin Time 12.9 SEC (11.7-14.0) Prothromb Time International Ratio 1.0 (0.8-1.1) Activated Partial Thromboplast Time 28 SEC (24-38) D-Dimer (Danisha) 0.27 ug/mlFEU (0.00-0.50) Sodium Level 140 mmol/L (136-145) 141 mmol/L (136-145) Potassium Level 4.0 mmol/L (3.5-5.1) 4.2 mmol/L (3.5-5.1) Chloride Level 102 mmol/L (98-107) 106 mmol/L (98-107) Carbon Dioxide Level 28 mmol/L (21-32) 29 mmol/L (21-32) Anion Gap 10 (6-14) 6 (6-14) Blood Urea Nitrogen 14 mg/dL (8-26) 11 mg/dL (8-26) Creatinine 0.9 mg/dL (0.7-1.3) 0.8 mg/dL (0.7-1.3) Estimated GFR (Cockcroft-Gault) 86.7 99.3 BUN/Creatinine Ratio 16 (6-20) Glucose Level 143 mg/dL (70-99) 106 mg/dL (70-99) Calcium Level 9.1 mg/dL (8.5-10.1) 8.5 mg/dL (8.5-10.1) Total Bilirubin 0.5 mg/dL (0.2-1.0) Aspartate Amino Transf (AST/SGOT) 27 U/L (15-37) Alanine Aminotransferase (ALT/SGPT) 41 U/L (16-63) Alkaline Phosphatase 89 U/L (46-116) Troponin I Quantitative < 0.017 ng/mL (0.000-0.055) < 0.017 ng/mL (0.000-0.055) < 0.017 ng/mL (0.000-0.055) UZ-Ikq-X-Type Natriuretic Peptide 108 pg/mL (0-124) Total Protein 6.7 g/dL (6.4-8.2) Albumin 3.7 g/dL (3.4-5.0) Albumin/Globulin Ratio 1.2 (1.0-1.7) Lipase 79 U/L (73-393) Urine Collection Type Unknown Urine Color Yellow Urine Clarity Cloudy Urine pH 6.0 Urine Specific [place] 1.025 Urine Protein Negative mg/dL (NEG-TRACE) Urine Glucose (UA) Negative mg/dL (NEG) Urine Ketones (Stick) Negative mg/dL (NEG) Urine Blood Small (NEG) Urine Nitrite Negative (NEG) Urine Bilirubin Negative (NEG) Urine Urobilinogen Dipstick 0.2 mg/dL (0.2 mg/dL) Urine Leukocyte Esterase Negative (NEG) Urine RBC 6-10 /HPF (0-2) Urine WBC 1-4 /HPF (0-4) Urine Bacteria 0 /HPF (0-FEW) Urine Mucus Marked /LPF Assessment/Plan Assessment/Plan Patient is a 56-year-old man who underwent right inguinal and umbilicus hernia repair yesterday. His stitches were starting to swell so he came into the emergency room. Prior to his arrival he began to experience chest pain and left arm numbness. He has experienced at times chest pain and left arm numbness previously. The arm numbness completely resolved. CT scan of the head was negative. Carotid Doppler did not reveal significant stenosis. It's not clear if he can have an MRI with his recent surgery. It's possible he had a transient ischemic attack or the arm numbness was related to the chest pain. I would recommend an echocardiogram to evaluate for an embolic source. An MRI head would be very helpful to i.e. nothing metallic and magnetic retained. He may also initiate aspirin 81 mg if okay from a surgical perspective. I appreciate being involved in his care. MARIA L FRAZIER MD Nov 15, 2016 16:40
[2016-11-15 19:52] VITALS: BP 106/62
[2016-11-15] MEDS: BUDESONIDE 0.5 MG/2 ML NEBU. NEB SCH (20:00)
[2016-11-15 23:00] VITALS: BP 101/65
[2016-11-16 02:57] VITALS: BP 118/79
[2016-11-16] MEDS: MORPHINE SULFATE 4 MG/ML DISP.SYRIN. IV PRN ×3 (03:02→08:59)
[2016-11-16] MEDS: ALBUTEROL SULFATE 2.5 MG/3 ML NEBU. NEB SCH ×6 (03:45→23:17)
[2016-11-16] MEDS: POTASSIUM CL 20MEQ D5-0.45NACL 1,000 ML IV SCH ×3 (04:30→16:06)
--- NOTE | 2016-11-16 04:47 | CONS ---
DATE OF CONSULTATION: 11/15/2016 REFERRING PHYSICIAN: Zuleyma Abarca M.D. REASON FOR CONSULTATION: Evaluate for transient ischemic attack or stroke. HISTORY OF PRESENT ILLNESS: The patient is a very pleasant 56-year-old man who presented last evening to the Emergency Room. He had complaints of chest pain and left arm numbness. He noticed the suture was very swollen, and this was actually what prompted him to want to go to the Emergency Room, but before he got, he restarted to have the chest pain and the arm symptoms. In the Emergency Room, a CT scan of the head was negative. His symptoms had fully resolved with an NIH scale of 0. He was not deemed a TPA candidate for that reason as well as the fact that he had just had surgery that morning for hernia repair. This was the right-sided inguinal hernia, and they also did an umbilical hernia while they were added. He was having abdominal pain and swelling and left upper chest pain with the arm numbness. At the present time, he just has pain at the surgical site. His arm is not bothering him nor is he having much chest pain. He reports that he has had prior episodes of chest pain associated with left arm numbness. PAST MEDICAL HISTORY: 1. Asthma. 2. Inguinal and umbilical hernia repairs performed on 11/14/2016. ALLERGIES: No known allergies to drugs. MEDICATIONS PRIOR TO ADMISSION: Albuterol metered-dose inhaler as needed and Advair twice per day. FAMILY HISTORY: His mother at 45 years from colon cancer. His father at 50 years from emphysema. His older sister of emphysema. His brother with HIV. SOCIAL HISTORY: He is a . He has 3 sons. He works as a yun. He smokes a pack of cigarettes per week. He drinks a 12-pack of beer per week. REVIEW OF SYSTEMS: He does not complain of any headache. There has been no change of vision or hearing. He has not had any changes in speech or cognition. He does not have nose or sinus trouble. He has been able to eat and swallow. He is not having any shortness of breath. He does have chest pain. He does not have diffuse abdominal pain but has pain at the surgical site. He has not had any fever or rash. He has not had a bowel movement since yesterday morning but normally does not have difficulty with bowels. He does not have any genitourinary complaints. He no longer has complaints of numbness. He does not feel weak. He feels a little off balance, but he attributes this to the narcotics for the pain. He does not complain of easy bruising or bleeding. He does not complain of swelling of the extremities. He does not have any endocrine complaints. He denies any psychiatric concerns. PHYSICAL EXAMINATION: VITAL SIGNS: The blood pressure was 119/71, pulse 59, respirations 16, temperature 97.7 degrees Fahrenheit. Oximetry was 100% on room air. His weight was 150 pounds, height 72 inches with a calculated body mass index of 20.3. GENERAL: He was alert, awake and cooperative. Speech was fluent and clear. He had a good fund of recent and remote knowledge. Attention and concentration were intact. He appeared well groomed and well nourished. He was fully oriented. NEUROLOGIC: Examination of the cranial nerves revealed visual reyez were full to confrontation. Extraocular movements were intact. The eyes were conjugate. Pursuit movements were smooth, and saccadic eye movements were without dysmetria. There was no nystagmus. Pupils were 3 mm and reacted. Funduscopic exam did not reveal papilledema, exudate or hemorrhage. Facial sensation was intact bilaterally. The muscles of mastication and facial expression were powerful symmetrically. Hearing was intact to finger rub. The palate arched symmetrically, and the tongue was midline with full range of motion. Sternocleidomastoid and trapezius were powerful. Muscle bulk and tone were normal. There was no arm drift or abnormal movement. The power was full and symmetric in the upper and lower extremities. Reflexes were 2/4 and symmetric in the upper and lower extremities. The toes were downgoing bilaterally. Coordination testing with cmriiq-[id number], wlmi-bz-gorv, fine motor and rapid alternating movements was well performed. The sensory exam was intact to pain, light touch, proprioception, graphesthesia, cold, thermal and vibration. There was no extinction to double simultaneous stimulation. Gait was not testable at this time. Auscultation of the carotid arteries did not reveal a bruit. Heart rhythm was regular without a murmur. Peripheral pulses were symmetric. There was no edema or cyanosis. REVIEW OF LABORATORY DATA: CBC revealed a normal white count and platelet count. Hemoglobin was low at 12.6 and hematocrit 36.2. Chemistries revealed normal electrolytes. BUN and creatinine were normal. Glucose was 106. Calcium was normal. Troponin was not elevated. Urinalysis revealed a small amount of blood, 6-10 red blood cells and 1-4 white blood cells. PT/INR was 1, and PTT was 28. D-dimer was 0.27. Carotid Doppler did not reveal any hemodynamically significant stenosis. Head CT did not reveal an acute process. Chest CTA did not reveal evidence of pulmonary embolus. CT scan of the abdomen and pelvis revealed moderate pneumoperitoneum with diffuse subcutaneous emphysema. They noted that while this could be related to the recent postoperative have changes, a bowel perforation was also suspected. IMPRESSION: The patient is a 56-year-old man who presented with chest pain and left arm numbness. He actually came to the ER not for these issues but because he was concerned about swelling of an incision. He had just undergone hernia surgeries. The neurologic exam at this time was completely normal. There was no evidence that he had suffered a stroke. I am relieved that the CAT scan did not reveal hemorrhage. RECOMMENDATIONS: He does report recurrent episodes of chest pain and left arm symptoms. Cardiology is involved and will need to evaluate for coronary artery disease with angina contributing. At times, angina can cause left arm symptoms. He is a smoker and a drinker, and this does put him at risk for stroke. An MRI of the head would be useful, but I am not certain he is a candidate because of the recent surgery if jennifer were used. I asked the ER doc to contact the surgeon to determine if he is a candidate for an MRI at this time or if it needs to be delayed because of the surgical procedure. An echocardiogram would also be helpful to look for cardioembolic source. When acceptable from the surgical perspective, I would recommend an aspirin as a stroke preventative. I appreciate being involved in his care. MARIA L FRAZIER MD DR: PREMA/mercedes JOB#: [id number] / [id number] Dr. Elena Wright, KENYON Butcher MD, CHERRIE MD ZWIBELMAN, JAY MD
[2016-11-16 07:00] VITALS: BP 107/70
[2016-11-16] MEDS: BUDESONIDE 0.5 MG/2 ML NEBU. NEB SCH ×2 (07:53→20:03)
[2016-11-16] MEDS: THIAMINE 100 MG in IV NORMAL SALINE 50ML 50 ML IV SCH (08:59)
--- NOTE | 2016-11-16 09:44 | PDOC ---
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: SURGICAL PROGRESS NOTE Subjective pain now more localized to umbilical area no n/v mild distention, no flatus Vital Signs Vital Signs Date Time Temp Pulse Resp B/P (MAP) Pulse Ox O2 Delivery O2 Flow Rate FiO2 11/16/16 08:59 18 95 Room Air 11/16/16 07:00 98.3 60 107/70 (82) 98.3 General: Alert, Oriented X3, Cooperative, No acute distress Abdomen: Soft, Other (incisional TTP, dressing dry) Labs Laboratory Tests Test 11/14/16 18:45 11/14/16 20:33 11/15/16 04:35 11/15/16 10:30 White Blood Count 8.5 x10^3/uL (4.0-11.0) 8.2 x10^3/uL (4.0-11.0) Red Blood Count 3.83 x10^6/uL (4.30-5.70) 3.71 x10^6/uL (4.30-5.70) Hemoglobin 12.9 g/dL (13.0-17.5) 12.6 g/dL (13.0-17.5) Hematocrit 38.2 % (39.0-53.0) 36.6 % (39.0-53.0) Mean Corpuscular Volume 100 fL (79-100) 99 fL (79-100) Mean Corpuscular Hemoglobin 34 pg (25-35) 34 pg (25-35) Mean Corpuscular Hemoglobin Concent 34 g/dL (31-37) 34 g/dL (31-37) Red Cell Distribution Width 13.2 % (11.5-14.5) 13.4 % (11.5-14.5) Platelet Count 202 x10^3/uL (140-400) 207 x10^3/uL (140-400) Neutrophils (%) (Auto) 94 % (31-73) 78 % (31-73) Lymphocytes (%) (Auto) 5 % (24-48) 11 % (24-48) Monocytes (%) (Auto) 1 % (0-9) 10 % (0-9) Eosinophils (%) (Auto) 0 % (0-3) 0 % (0-3) Basophils (%) (Auto) 0 % (0-3) 0 % (0-3) Neutrophils # (Auto) 7.9 x10^3uL (1.8-7.7) 6.4 x10^3uL (1.8-7.7) Lymphocytes # (Auto) 0.4 x10^3/uL (1.0-4.8) 0.9 x10^3/uL (1.0-4.8) Monocytes # (Auto) 0.1 x10^3/uL (0.0-1.1) 0.9 x10^3/uL (0.0-1.1) Eosinophils # (Auto) 0.0 x10^3/uL (0.0-0.7) 0.0 x10^3/uL (0.0-0.7) Basophils # (Auto) 0.0 x10^3/uL (0.0-0.2) 0.0 x10^3/uL (0.0-0.2) Segmented Neutrophils % 82 % (35-66) Band Neutrophils % 13 % (0-9) Lymphocytes % 3 % (24-48) Monocytes % 1 % (0-10) Eosinophils % 1 % (0-5) Platelet Estimate Adequate (ADEQUATE) Prothrombin Time 12.9 SEC (11.7-14.0) Prothromb Time International Ratio 1.0 (0.8-1.1) Activated Partial Thromboplast Time 28 SEC (24-38) D-Dimer (Danisha) 0.27 ug/mlFEU (0.00-0.50) Sodium Level 140 mmol/L (136-145) 141 mmol/L (136-145) Potassium Level 4.0 mmol/L (3.5-5.1) 4.2 mmol/L (3.5-5.1) Chloride Level 102 mmol/L (98-107) 106 mmol/L (98-107) Carbon Dioxide Level 28 mmol/L (21-32) 29 mmol/L (21-32) Anion Gap 10 (6-14) 6 (6-14) Blood Urea Nitrogen 14 mg/dL (8-26) 11 mg/dL (8-26) Creatinine 0.9 mg/dL (0.7-1.3) 0.8 mg/dL (0.7-1.3) Estimated GFR (Cockcroft-Gault) 86.7 99.3 BUN/Creatinine Ratio 16 (6-20) Glucose Level 143 mg/dL (70-99) 106 mg/dL (70-99) Calcium Level 9.1 mg/dL (8.5-10.1) 8.5 mg/dL (8.5-10.1) Total Bilirubin 0.5 mg/dL (0.2-1.0) Aspartate Amino Transf (AST/SGOT) 27 U/L (15-37) Alanine Aminotransferase (ALT/SGPT) 41 U/L (16-63) Alkaline Phosphatase 89 U/L (46-116) Troponin I Quantitative < 0.017 ng/mL (0.000-0.055) < 0.017 ng/mL (0.000-0.055) < 0.017 ng/mL (0.000-0.055) ZH-Yfj-L-Type Natriuretic Peptide 108 pg/mL (0-124) Total Protein 6.7 g/dL (6.4-8.2) Albumin 3.7 g/dL (3.4-5.0) Albumin/Globulin Ratio 1.2 (1.0-1.7) Lipase 79 U/L (73-393) Urine Collection Type Unknown Urine Color Yellow Urine Clarity Cloudy Urine pH 6.0 Urine Specific [place] 1.025 Urine Protein Negative mg/dL (NEG-TRACE) Urine Glucose (UA) Negative mg/dL (NEG) Urine Ketones (Stick) Negative mg/dL (NEG) Urine Blood Small (NEG) Urine Nitrite Negative (NEG) Urine Bilirubin Negative (NEG) Urine Urobilinogen Dipstick 0.2 mg/dL (0.2 mg/dL) Urine Leukocyte Esterase Negative (NEG) Urine RBC 6-10 /HPF (0-2) Urine WBC 1-4 /HPF (0-4) Urine Bacteria 0 /HPF (0-FEW) Urine Mucus Marked /LPF Laboratory Tests Test 11/15/16 10:30 Troponin I Quantitative < 0.017 ng/mL (0.000-0.055) Problem List Problems Medical Problems: (1) Abdominal pain Status: Acute (2) Chest pain Status: Acute (3) TIA (transient ischemic attack) Status: Acute Assessment/Plan continue clears, possible advance if some flatus today Problems: ROMEO PLUNKETT MD 11/16/16 1439: SURGICAL PROGRESS NOTE Assessment/Plan tolerating full liquids feels better Problems: CHELO MARIE APRN Nov 16, 2016 09:44 ROMEO PLUNKETT MD Nov 16, 2016 14:39
[2016-11-16 09:45] LABS: BASO % 1 % (0-3); EOS % 2 % (0-3); HEMATOCRIT 38.2 % (39.0-53.0); HEMOGLOBIN 12.6 g/dL (13.0-17.5); LYMPH # 1.9 x10^3/uL (1.0-4.8); LYMPH % 28 % (24-48); MEAN CORPUSCULAR HEMOGLOBIN 34 pg (25-35); MEAN CORPUSCULAR HGB CONC 33 g/dL (31-37); MEAN CORPUSCULAR VOLUME 101 fL (79-100); MONO % 10 % (0-9); NEUT % 60 % (31-73); PLATELET COUNT 195 x10^3/uL (140-400); RED BLOOD COUNT 3.77 x10^6/uL (4.30-5.70); RED CELL DISTRIBUTION WIDTH 13.3 % (11.5-14.5); WHITE BLOOD COUNT 6.7 x10^3/uL (4.0-11.0)
[2016-11-16 10:02] LABS: ALBUMIN 3.3 g/dL (3.4-5.0); ALBUMIN/GLOBULIN RATIO 1.1 (1.0-1.7); CALCIUM 8.7 mg/dL (8.5-10.1); CREATININE 0.8 mg/dL (0.7-1.3); GFR 99.3; POTASSIUM 3.5 mmol/L (3.5-5.1); TOTAL BILIRUBIN 0.5 mg/dL (0.2-1.0); TOTAL PROTEIN 6.3 g/dL (6.4-8.2)
--- NOTE | 2016-11-16 10:50 | PDOC ---
PROGRESS NOTES Chief Complaint Chief Complaint acute abd pain pneumoperitoneum NAUSEA, Poor PO intake Left arm weakness, numbness and tingling, resolved, likely related to #2 asthma, stable macrocytic anemia, History of Present Illness History of Present Illness amb cont IV fluid most symptoms better B12 and folate sups breathing well Vitals Vitals Vital Signs Date Time Temp Pulse Resp B/P (MAP) Pulse Ox O2 Delivery O2 Flow Rate FiO2 11/16/16 08:59 18 95 Room Air 11/16/16 07:00 98.3 60 107/70 (82) 98.3 Physical Exam General: Alert, Oriented X3, Cooperative, No acute distress Heart: Regular rate, Normal S1, Normal S2, No murmurs Abdomen: Soft, Other (incisional TTP, dressing dry) Extremities: No clubbing, No cyanosis Skin: No rashes, No breakdown Labs LABS Laboratory Tests Test 11/16/16 09:20 White Blood Count 6.7 x10^3/uL (4.0-11.0) Red Blood Count 3.77 x10^6/uL (4.30-5.70) Hemoglobin 12.6 g/dL (13.0-17.5) Hematocrit 38.2 % (39.0-53.0) Mean Corpuscular Volume 101 fL (79-100) Mean Corpuscular Hemoglobin 34 pg (25-35) Mean Corpuscular Hemoglobin Concent 33 g/dL (31-37) Red Cell Distribution Width 13.3 % (11.5-14.5) Platelet Count 195 x10^3/uL (140-400) Neutrophils (%) (Auto) 60 % (31-73) Lymphocytes (%) (Auto) 28 % (24-48) Monocytes (%) (Auto) 10 % (0-9) Eosinophils (%) (Auto) 2 % (0-3) Basophils (%) (Auto) 1 % (0-3) Neutrophils # (Auto) 4.0 x10^3uL (1.8-7.7) Lymphocytes # (Auto) 1.9 x10^3/uL (1.0-4.8) Monocytes # (Auto) 0.7 x10^3/uL (0.0-1.1) Eosinophils # (Auto) 0.1 x10^3/uL (0.0-0.7) Basophils # (Auto) 0.0 x10^3/uL (0.0-0.2) Sodium Level 142 mmol/L (136-145) Potassium Level 3.5 mmol/L (3.5-5.1) Chloride Level 105 mmol/L (98-107) Carbon Dioxide Level 31 mmol/L (21-32) Anion Gap 6 (6-14) Blood Urea Nitrogen 7 mg/dL (8-26) Creatinine 0.8 mg/dL (0.7-1.3) Estimated GFR (Cockcroft-Gault) 99.3 BUN/Creatinine Ratio 9 (6-20) Glucose Level 95 mg/dL (70-99) Calcium Level 8.7 mg/dL (8.5-10.1) Total Bilirubin 0.5 mg/dL (0.2-1.0) Aspartate Amino Transf (AST/SGOT) 20 U/L (15-37) Alanine Aminotransferase (ALT/SGPT) 32 U/L (16-63) Alkaline Phosphatase 53 U/L (46-116) Total Protein 6.3 g/dL (6.4-8.2) Albumin 3.3 g/dL (3.4-5.0) Albumin/Globulin Ratio 1.1 (1.0-1.7) Triglycerides Level 66 mg/dL (0-150) Cholesterol Level 123 mg/dL (0-200) LDL Cholesterol, Calculated 49 mg/dL (0-100) VLDL Cholesterol, Calculated 13 mg/dL (0-40) Non-HDL Cholesterol Calculated 62 mg/dL (0-129) HDL Cholesterol 61 mg/dL (40-60) Cholesterol/HDL Ratio 2.0 Thyroid Stimulating Hormone (TSH) 2.152 uIU/mL (0.358-3.74) Review of Systems Review of Systems still nausea wants to stick to clear liquids ambulating some pain better Assessment and Plan Assessmemt and Plan Problems Medical Problems: (1) Abdominal pain Status: Acute (2) Chest pain Status: Acute (3) TIA (transient ischemic attack) Status: Acute Problems: Comment Review of Relevant I have reviewed the following items tami (where applicable) has been applied. Labs Laboratory Tests Test 11/14/16 18:45 11/14/16 20:33 11/15/16 04:35 11/15/16 10:30 White Blood Count 8.5 x10^3/uL (4.0-11.0) 8.2 x10^3/uL (4.0-11.0) Red Blood Count 3.83 x10^6/uL (4.30-5.70) 3.71 x10^6/uL (4.30-5.70) Hemoglobin 12.9 g/dL (13.0-17.5) 12.6 g/dL (13.0-17.5) Hematocrit 38.2 % (39.0-53.0) 36.6 % (39.0-53.0) Mean Corpuscular Volume 100 fL (79-100) 99 fL (79-100) Mean Corpuscular Hemoglobin 34 pg (25-35) 34 pg (25-35) Mean Corpuscular Hemoglobin Concent 34 g/dL (31-37) 34 g/dL (31-37) Red Cell Distribution Width 13.2 % (11.5-14.5) 13.4 % (11.5-14.5) Platelet Count 202 x10^3/uL (140-400) 207 x10^3/uL (140-400) Neutrophils (%) (Auto) 94 % (31-73) 78 % (31-73) Lymphocytes (%) (Auto) 5 % (24-48) 11 % (24-48) Monocytes (%) (Auto) 1 % (0-9) 10 % (0-9) Eosinophils (%) (Auto) 0 % (0-3) 0 % (0-3) Basophils (%) (Auto) 0 % (0-3) 0 % (0-3) Neutrophils # (Auto) 7.9 x10^3uL (1.8-7.7) 6.4 x10^3uL (1.8-7.7) Lymphocytes # (Auto) 0.4 x10^3/uL (1.0-4.8) 0.9 x10^3/uL (1.0-4.8) Monocytes # (Auto) 0.1 x10^3/uL (0.0-1.1) 0.9 x10^3/uL (0.0-1.1) Eosinophils # (Auto) 0.0 x10^3/uL (0.0-0.7) 0.0 x10^3/uL (0.0-0.7) Basophils # (Auto) 0.0 x10^3/uL (0.0-0.2) 0.0 x10^3/uL (0.0-0.2) Segmented Neutrophils % 82 % (35-66) Band Neutrophils % 13 % (0-9) Lymphocytes % 3 % (24-48) Monocytes % 1 % (0-10) Eosinophils % 1 % (0-5) Platelet Estimate Adequate (ADEQUATE) Prothrombin Time 12.9 SEC (11.7-14.0) Prothromb Time International Ratio 1.0 (0.8-1.1) Activated Partial Thromboplast Time 28 SEC (24-38) D-Dimer (Danisha) 0.27 ug/mlFEU (0.00-0.50) Sodium Level 140 mmol/L (136-145) 141 mmol/L (136-145) Potassium Level 4.0 mmol/L (3.5-5.1) 4.2 mmol/L (3.5-5.1) Chloride Level 102 mmol/L (98-107) 106 mmol/L (98-107) Carbon Dioxide Level 28 mmol/L (21-32) 29 mmol/L (21-32) Anion Gap 10 (6-14) 6 (6-14) Blood Urea Nitrogen 14 mg/dL (8-26) 11 mg/dL (8-26) Creatinine 0.9 mg/dL (0.7-1.3) 0.8 mg/dL (0.7-1.3) Estimated GFR (Cockcroft-Gault) 86.7 99.3 BUN/Creatinine Ratio 16 (6-20) Glucose Level 143 mg/dL (70-99) 106 mg/dL (70-99) Calcium Level 9.1 mg/dL (8.5-10.1) 8.5 mg/dL (8.5-10.1) Total Bilirubin 0.5 mg/dL (0.2-1.0) Aspartate Amino Transf (AST/SGOT) 27 U/L (15-37) Alanine Aminotransferase (ALT/SGPT) 41 U/L (16-63) Alkaline Phosphatase 89 U/L (46-116) Troponin I Quantitative < 0.017 ng/mL (0.000-0.055) < 0.017 ng/mL (0.000-0.055) < 0.017 ng/mL (0.000-0.055) QV-Awn-U-Type Natriuretic Peptide 108 pg/mL (0-124) Total Protein 6.7 g/dL (6.4-8.2) Albumin 3.7 g/dL (3.4-5.0) Albumin/Globulin Ratio 1.2 (1.0-1.7) Lipase 79 U/L (73-393) Urine Collection Type Unknown Urine Color Yellow Urine Clarity Cloudy Urine pH 6.0 Urine Specific [place] 1.025 Urine Protein Negative mg/dL (NEG-TRACE) Urine Glucose (UA) Negative mg/dL (NEG) Urine Ketones (Stick) Negative mg/dL (NEG) Urine Blood Small (NEG) Urine Nitrite Negative (NEG) Urine Bilirubin Negative (NEG) Urine Urobilinogen Dipstick 0.2 mg/dL (0.2 mg/dL) Urine Leukocyte Esterase Negative (NEG) Urine RBC 6-10 /HPF (0-2) Urine WBC 1-4 /HPF (0-4) Urine Bacteria 0 /HPF (0-FEW) Urine Mucus Marked /LPF Test 11/16/16 09:20 White Blood Count 6.7 x10^3/uL (4.0-11.0) Red Blood Count 3.77 x10^6/uL (4.30-5.70) Hemoglobin 12.6 g/dL (13.0-17.5) Hematocrit 38.2 % (39.0-53.0) Mean Corpuscular Volume 101 fL (79-100) Mean Corpuscular Hemoglobin 34 pg (25-35) Mean Corpuscular Hemoglobin Concent 33 g/dL (31-37) Red Cell Distribution Width 13.3 % (11.5-14.5) Platelet Count 195 x10^3/uL (140-400) Neutrophils (%) (Auto) 60 % (31-73) Lymphocytes (%) (Auto) 28 % (24-48) Monocytes (%) (Auto) 10 % (0-9) Eosinophils (%) (Auto) 2 % (0-3) Basophils (%) (Auto) 1 % (0-3) Neutrophils # (Auto) 4.0 x10^3uL (1.8-7.7) Lymphocytes # (Auto) 1.9 x10^3/uL (1.0-4.8) Monocytes # (Auto) 0.7 x10^3/uL (0.0-1.1) Eosinophils # (Auto) 0.1 x10^3/uL (0.0-0.7) Basophils # (Auto) 0.0 x10^3/uL (0.0-0.2) Sodium Level 142 mmol/L (136-145) Potassium Level 3.5 mmol/L (3.5-5.1) Chloride Level 105 mmol/L (98-107) Carbon Dioxide Level 31 mmol/L (21-32) Anion Gap 6 (6-14) Blood Urea Nitrogen 7 mg/dL (8-26) Creatinine 0.8 mg/dL (0.7-1.3) Estimated GFR (Cockcroft-Gault) 99.3 BUN/Creatinine Ratio 9 (6-20) Glucose Level 95 mg/dL (70-99) Calcium Level 8.7 mg/dL (8.5-10.1) Total Bilirubin 0.5 mg/dL (0.2-1.0) Aspartate Amino Transf (AST/SGOT) 20 U/L (15-37) Alanine Aminotransferase (ALT/SGPT) 32 U/L (16-63) Alkaline Phosphatase 53 U/L (46-116) Total Protein 6.3 g/dL (6.4-8.2) Albumin 3.3 g/dL (3.4-5.0) Albumin/Globulin Ratio 1.1 (1.0-1.7) Triglycerides Level 66 mg/dL (0-150) Cholesterol Level 123 mg/dL (0-200) LDL Cholesterol, Calculated 49 mg/dL (0-100) VLDL Cholesterol, Calculated 13 mg/dL (0-40) Non-HDL Cholesterol Calculated 62 mg/dL (0-129) HDL Cholesterol 61 mg/dL (40-60) Cholesterol/HDL Ratio 2.0 Thyroid Stimulating Hormone (TSH) 2.152 uIU/mL (0.358-3.74) Laboratory Tests Test 11/16/16 09:20 White Blood Count 6.7 x10^3/uL (4.0-11.0) Red Blood Count 3.77 x10^6/uL (4.30-5.70) Hemoglobin 12.6 g/dL (13.0-17.5) Hematocrit 38.2 % (39.0-53.0) Mean Corpuscular Volume 101 fL (79-100) Mean Corpuscular Hemoglobin 34 pg (25-35) Mean Corpuscular Hemoglobin Concent 33 g/dL (31-37) Red Cell Distribution Width 13.3 % (11.5-14.5) Platelet Count 195 x10^3/uL (140-400) Neutrophils (%) (Auto) 60 % (31-73) Lymphocytes (%) (Auto) 28 % (24-48) Monocytes (%) (Auto) 10 % (0-9) Eosinophils (%) (Auto) 2 % (0-3) Basophils (%) (Auto) 1 % (0-3) Neutrophils # (Auto) 4.0 x10^3uL (1.8-7.7) Lymphocytes # (Auto) 1.9 x10^3/uL (1.0-4.8) Monocytes # (Auto) 0.7 x10^3/uL (0.0-1.1) Eosinophils # (Auto) 0.1 x10^3/uL (0.0-0.7) Basophils # (Auto) 0.0 x10^3/uL (0.0-0.2) Sodium Level 142 mmol/L (136-145) Potassium Level 3.5 mmol/L (3.5-5.1) Chloride Level 105 mmol/L (98-107) Carbon Dioxide Level 31 mmol/L (21-32) Anion Gap 6 (6-14) Blood Urea Nitrogen 7 mg/dL (8-26) Creatinine 0.8 mg/dL (0.7-1.3) Estimated GFR (Cockcroft-Gault) 99.3 BUN/Creatinine Ratio 9 (6-20) Glucose Level 95 mg/dL (70-99) Calcium Level 8.7 mg/dL (8.5-10.1) Total Bilirubin 0.5 mg/dL (0.2-1.0) Aspartate Amino Transf (AST/SGOT) 20 U/L (15-37) Alanine Aminotransferase (ALT/SGPT) 32 U/L (16-63) Alkaline Phosphatase 53 U/L (46-116) Total Protein 6.3 g/dL (6.4-8.2) Albumin 3.3 g/dL (3.4-5.0) Albumin/Globulin Ratio 1.1 (1.0-1.7) Triglycerides Level 66 mg/dL (0-150) Cholesterol Level 123 mg/dL (0-200) LDL Cholesterol, Calculated 49 mg/dL (0-100) VLDL Cholesterol, Calculated 13 mg/dL (0-40) Non-HDL Cholesterol Calculated 62 mg/dL (0-129) HDL Cholesterol 61 mg/dL (40-60) Cholesterol/HDL Ratio 2.0 Thyroid Stimulating Hormone (TSH) 2.152 uIU/mL (0.358-3.74) Medications Current Medications Sodium Chloride 1,000 ml @ 1,000 mls/hr 1X ONCE IV Last administered on 18:56; Start 11/14/16 at 19:00; Stop 11/14/16 at 19:59; Status DC Iohexol (Omnipaque 300 Mg/ml) 75 ml 1X ONCE IV Last administered on 11/14/16 20:15; Start 11/14/16 at 20:15; Stop 11/14/16 at 20:16; Status DC Info (Do NOT chart on this entry -- for MONITORING) 1 each PRN DAILY PRN MC SEE COMMENTS; Start 11/14/16 at 20:15; Stop 11/16/16 at 20:14 Morphine Sulfate 4 mg PRN Q15MIN PRN IV/SQ PAIN GREATER THAN 3/10 Last administered on 11/14/16 21:41; Start 11/14/16 at 21:30; Stop 11/15/16 at 08:23; Status DC Ondansetron HCl (Zofran) 4 mg PRN Q8HRS PRN IV NAUSEA/VOMITING; Start 11/14/16 at 22:30; Stop 11/15/16 at 22:29; Status DC Morphine Sulfate 2 mg PRN Q2HR PRN IV PAIN Last administered on 11/15/16 05:52 ; Start 11/14/16 at 22:30; Stop 11/15/16 at 08:23; Status DC Acetaminophen (Tylenol) 650 mg PRN Q4HRS PRN PO FEVER; Start 11/14/16 at 22:30; Stop 11/15/16 at 22:29; Status DC Aspirin (Ecotrin) 81 mg 1X ONCE PO ; Start 11/14/16 at 22:45; Stop 11/14/16 at 22 :46; Status DC Albuterol Sulfate (Ventolin Neb Soln) 2.5 mg Q4HRS NEB Last administered on 07:53; Start 11/15/16 at 12:00 Budesonide (Pulmicort) 0.5 mg RTBID NEB Last administered on 11/16/16 07:53; Start 11/15/16 at 20:00 Morphine Sulfate 4 mg PRN Q2HR PRN IV PAIN Last administered on 11/16/16 08:59 ; Start 11/15/16 at 08:30 Fentanyl Citrate (Fentanyl 2ml Vial) 75 mcg PRN Q2HR PRN IV PAIN; Start at 08:30 Potassium Chloride/Dextrose/ Sod Cl 1,000 ml @ 100 mls/hr Q10H IV Last administered on 11/16/16 05:16; Start 11/15/16 at 08:30 Thiamine HCl 100 mg/Sodium Chloride 51 ml @ 102 mls/hr DAILY IV Last administered on 11/16/16 08:59; Start 11/15/16 at 09:00 Nicotine (Nicoderm Cq 7mg) 1 patch PRN DAILY PRN TD SMOKING CESSATION; Start at 08:45 Nicotine Polacrilex (Nicorette Gum) 1 each PRN Q1HR PRN BC SMOKING CESSATION; Start 11/15/16 at 08:45 Active Scripts Active Reported Ventolin Hfa Inhaler (Albuterol Sulfate) 18 Gm Hfa.aer.ad 2 Puff INH Q4HRS Advair 100-50 Diskus (Fluticasone/Salmeterol) 1 Each Disk.w.dev 1 Puff IH BID Vitals/I & O Vital Sign - Last 24 Hours 11/15/16 11/15/16 11/15/16 11/15/16 10:58 11:54 13:06 15:00 Temp 97.6 97.7 97.6 97.7 Pulse 53 59 Resp 16 16 B/P (MAP) 99/64 (76) 119/71 (87) Pulse Ox 97 100 O2 Delivery Room Air Room Air Room Air Room Air 11/15/16 11/15/16 11/15/16 11/15/16 16:30 17:40 19:52 20:00 Temp 97.3 97.3 Pulse 56 Resp 18 B/P (MAP) 106/62 (77) Pulse Ox 96 O2 Delivery Room Air Room Air Room Air Room Air 11/15/16 11/15/16 11/15/16 11/15/16 20:32 23:00 23:22 23:52 Temp 97.6 97.6 Pulse 58 Resp 17 18 18 B/P (MAP) 101/65 (77) Pulse Ox 96 95 95 O2 Delivery Room Air Room Air Room Air 11/16/16 11/16/16 11/16/16 11/16/16 02:57 03:02 05:13 05:43 Temp 97.5 97.5 Pulse 60 Resp 18 B/P (MAP) 118/79 (92) Pulse Ox 95 95 95 95 O2 Delivery Room Air Room Air Room Air Room Air 11/16/16 11/16/16 11/16/16 11/16/16 07:00 07:57 07:58 08:00 Temp 98.3 98.3 Pulse 60 Resp 18 B/P (MAP) 107/70 (82) Pulse Ox 95 O2 Delivery Room Air Room Air Room Air Room Air 11/16/16 08:59 Resp 18 Pulse Ox 95 O2 Delivery Room Air KATIE PERKINS MD Nov 16, 2016 10:50
[2016-11-16 11:00] VITALS: BP 104/64
[2016-11-16] MEDS: FOLIC/VIT B COMP W-C (RENAL) TABLET. PO SCH (12:16)
[2016-11-16] MEDS: oxyCODONE/APAP 5/325 1 TAB TABLET PO PRN ×2 (14:55→19:33)
[2016-11-16 15:00] VITALS: BP 115/64
[2016-11-16 19:00] VITALS: BP 113/59
[2016-11-16 22:41] VITALS: BP 101/59
--- NOTE | 2016-11-17 00:35 | ACF ---
Admission Forms Criteria NEUROLOGY GRG Clinical Indications for Admission to Inpatient Care (Place ' X' for any and all applicable criteria): Hospital admission is needed for appropriate care of the patient because of 1 or more of the following: [ ]I. Encephalitis [ ]II. Severe [employer] infections indicated by 1 or more of the following(1)(2)(3) : [ ]a) Intracranial abscess [ ]b) Spinal abscess or myelitis [ ]c) Tuberculous or other nonbacterial, nonviral REMOTE SENSING TECHNOLOGIST infection(8) [ ]III. Vasculitis and 1 or more of the following(14)(15): []a) Altered mental status that is severe or persistent or other acute neurologic change []b) Psychosis []c) Seizure [ ]IV. Status epilepticus or repetitive seizures not controlled with emergent treatment [A] (7)(8) [ ]V. Altered mental status that is severe or persistent [ ]. Transient alteration in consciousness with high-risk etiology; examples include (12)(13): [ ]a) Cardiovascular source [ ]b) Cataplexy [ ]VII. Cerebral aneurysm requiring ANY ONE of the following(14): [ ]a) IV antihypertensives or vasoactive agents [ ]b) Sedation and analgesia for suspected leak [ ]c) Need for external ventricular drainage and cerebral perfusion pressure monitoring [ ]d) Emergent evaluation to determine need for surgical clipping or endovascular coiling by interventional radiology. If surgery is required ( Also use Craniotomy, Supratentorial, for Surgery of Bleeding Intracranial Aneurysm (for bleeding aneurysm) or Craniotomy, Supratentorial (for nonbleeding aneurysm) as appropriate. [X]VIII. New-onset severe neurologic symptom requiring inpatient care indicated by ANY ONE of the following: [ ]a) Aphasia(15) [ ]b) Weakness (grade 3 or less) [ ]c) Paralysis (eg, hemiplegia) [ ]d) Spasticity(16) [ ]e) Dystonia [ ]e) Ataxia(17) [ ]f) Amnesia(18) [ ]g) Involuntary movements(19) [ ]h) Vertigo [ ] Visual loss [X]i) Other severe neurologic finding (eg, papilledema, mass effect on imaging, myoclonus not treatable at alternative level of care (eg, observation care) [ ]IX. Guillain-[place] syndrome(20) [ ]X. Myasthenia gravis crisis or inpatient monitoring need as indicated by 1 or more of the following(21): [ ]a) Intensive treatment (eg, course of plasmapheresis) with inadequate outpatient situation to monitor patients status [ ]b) Inadequate airway protection [ ]c) Respiratory insufficiency requiring intubation or inpatient. monitoring [ ]d) Progressive dysphagia with failure to thrive [ ]XI. Multiple sclerosis or other acute demyelinating disease requiring inpatient care as indicated by 1 or more of the following (22)(23): [ ]a) Acute severe deterioration requiring inpatient treatment (eg, IV steroids, plasmapheresis, close observation) [ ]b) Acute complication requiring inpatient care (eg, sepsis, severe decubitus, aspiration) [ ]XII.Parkinson disease requiring inpatient care (Also use Optimal Recovery Care Criteria or General Recovery Criteria as appropriate) indicated by 1 or more of the following(25): [ ]a) Infection (eg, aspiration pneumonia) not treatable at alternative level of care [ ]b Dehydration that is severe or persistent [ ]c) Life-threatening agitation or psychotic behavior not treatable on emergency, observation care, or alternative level (eg, residential) basis [ ]d) Severe medication withdrawal effects (eg, freezing, neuroleptic malignant syndrome) not responsive to emergency and observation care treatment ( as appropriate) [ ]e) Other severe manifestation not treatable at alternative level of care [ ]XII. Amyotrophic lateral sclerosis with inpatient care needs as indicated by ANY ONE of the following(26): [ ]a) Acute complications (eg, aspiration pneumonia, sepsis ) requiring inpatient care ( see other optimal Recovery Guideline as appropriate) [ ]b) Dehydration that is severe persistent AND artificial support desired [ ]c) Inadequate airway protection AND artificial support desired [ ]d) Severe ventilatory insufficiency AND artificial support desired [ ]XIII. Myasthenia gravis crisis or inpatient monitoring need as indicated by 1 or more of the following(21): [] a) Inadequate airway protection []b) Respiratory insufficiency requiring intubation or inpatient monitoring []c) Progressive dysphagia with failure to thrive []d) Intensive treatment (e.g., course of plasmapheresis) with inadequate outpatient situation to monitor patients status [ ]XIV. Multiple sclerosis or other acute demyelinating disease requiring inpatient care indicated by 1 or more of the following[C](36)(43)(44)(45)(46): []a) Acute severe deterioration requiring inpatient treatment (eg, IV steroids, plasmapheresis, close observation) []b) Acute complication requiring inpatient care (eg, sepsis, severe decubitus, aspiration) [ ]XV. Intracranial hypertension (e.g., pseudotumor cerebri) requiring inpatient care (e.g., acute visual loss, inadequate oral intake) (47)(48)(49) [ ]XVI. Parkinson disease requiring inpatient care (Also use Optimal Recovery Care Criteria or General Recovery Criteria as appropriate) indicated by 1 or more of the following(25): [] a) Infection (e.g., aspiration pneumonia) not treatable at alternative level of care []b) Volume depletion not responsive to emergency and observation care treatment (as appropriate) []c) Life-threatening agitation or psychotic behavior not treatable on emergency, observation care, or alternative level (e.g., residential) basis []d) Severe medication withdrawal effects (e.g., freezing, neuroleptic malignant syndrome) not responsive to emergency and observation care treatment (as appropriate) []e) Other severe manifestation not treatable at alternative level of care [ ]XVII. Amyotrophic lateral sclerosis with inpatient care needs as indicated by1 or more of the following(42): []a) Acute complications (eg, aspiration pneumonia, sepsis) requiring inpatient care (see other Optimal Recovery Guideline or General Recovery Guideline as appropriate) []b) Dehydration that is severe or persistent AND artificial support desired []c) Inadequate airway protection AND artificial support desired []d) Severe ventilatory insufficiency AND artificial support desired [ ]XVIII. Severe myopathy, neuropathy, or other neuromuscular disease indicated by 1 or more of the following(42)(52)(53)(54): []a ) New-onset severe diffuse weakness (eg, strength 3/5 or less) []b) Severe dysphagia []c) Dyspnea at rest or with minimal exertion (new) []d) Inadequate airway protection []e) Inadequate ventilation indicated by 1 or more of the following : i) Partial pressure of carbon dioxide greater than 44 mm Hg ( 5.9 kPa) (new) ii) Reduced peak expiratory flow rate (new) iii) Vital capacity less than 50% of predicted (less than 15 mL/kg) iv) Peak inspiratory force less negative than -30 cm H2O (- 2942 Pa) [ ]XVII.Complications of congenital or degenerative disease (eg, infection, seizures, dehydration, injury) not responsive to emergency and observation care treatment (as appropriate ) [C](16)(29)(30) [ ]XVIII.Suspected or confirmed nerve or muscle toxic injury, including ANY ONE of the following: [ ]a) Rhabdomyolysis(31) i) Acute renal failure ii) Dehydration that is severe or persistent iii) Altered mental status that is severe or persistent iv) Electrolyte abnormality that remains after emergency or observation level care ( as appropriate) [ ]b) Botulism(32) [ ]c) Other severe toxin-induced sign or symptom [ ]XIX. Neurologic trauma requiring inpatient treatment (medical) indicated by ANY ONE of the following(33)(34): [ ]a) Vital signs or neurologic signs more frequently than every 4 hours [ ]b) Hyperosmolar therapy [ ]c) Respiratory monitoring [ ]d) Intracranial pressure monitoring and treatment [ ]e) Stabilization and immobilization device placement (eg, braces, body jacket) [ ]f) Intubation & mechanical ventilation for airway protection or therapeutic hyperventilation [ ]g) Other treatment or monitoring needed that requires inpatient level of care [ ]XX.Complications of neurologic devices (eg, ventricular shunt, neurostimulator) requiring 1 or more of the following(35)(36): [ ]a) IV antibiotics with monitoring while awaiting culture results [ ]b) Monitoring for hydrocephalus [ ]XXI. Neurology condition symptom, or finding for which emergency and observation care have failed or are not considered appropriate. See General Criteria: Observation Care ISC, General Admission Criteria GRG, or Pediatric General Admission Criteria GRG guideline as appropriate. The original [facility] [employer] content created by [facility] has been revised. The portions of the content which have been revised are identified through the use of italic text or in bold, and [facility] has neither reviewed nor approved the modified material. All other unmodified content is copyright [facility] Please see references footnoted in the original [facility] edition 2016 Admission Criteria Met?: Yes ROBERT RAMIREZ Nov 17, 2016 00:35
[2016-11-17] MEDS: ALBUTEROL SULFATE 2.5 MG/3 ML NEBU. NEB SCH ×4 (01:33→16:00)
[2016-11-17 03:00] VITALS: BP 108/59
[2016-11-17] MEDS: POTASSIUM CL 20MEQ D5-0.45NACL 1,000 ML IV SCH (04:25)
[2016-11-17] MEDS: oxyCODONE/APAP 5/325 1 TAB TABLET PO PRN ×2 (04:26→12:50)
[2016-11-17 07:00] VITALS: BP 117/69
[2016-11-17] MEDS: BUDESONIDE 0.5 MG/2 ML NEBU. NEB SCH (08:00)
[2016-11-17] MEDS: THIAMINE 100 MG in IV NORMAL SALINE 50ML 50 ML IV SCH (08:46)
[2016-11-17] MEDS: FOLIC/VIT B COMP W-C (RENAL) TABLET. PO SCH (08:46)
[2016-11-17] MEDS ORDERED: ASPIRIN CHEWABLE 81 MG TABLET. PO SCH (10:30)
[2016-11-17 11:00] VITALS: BP 107/64
--- NOTE | 2016-11-17 11:01 | PDOC ---
Provider Note Provider Note he feels 100% back to normal. no neurologic or abd c/o. afeb vss alert, no distress moves up in bed without prob. abd soft nd nt bandages dry a/p ok to start asa. added lovenox for dvt proph soft diet. ok to dc when ok with hospitalist and neurology. f/u w me next week. i see that over the weekend, neurology had contemplated a mri. the tacks used for hernia repair are not metal, so if mri helpful for neurology eval, he would be ok from my perspective for an mri. will defer to neurology. JEANNIE SANTANA MD Nov 17, 2016 11:01
[2016-11-17] MEDS ORDERED: GADOBUTROL 7.5 MMOL/7.5 ML VIAL IV ONE (14:00)
--- NOTE | 2016-11-17 14:36 | RAD ---
INDICATION: Headaches and left arm numbness 3 days ago. TIA. TECHNIQUE: Sagittal T1, axial T1, axial T2, axial FLAIR, axial T2 gradient, diffusion imaging with ADC map, postcontrast axial, and postcontrast coronal sequences are provided. Comparison CT head is from November 14, 2016. 7.5 mL of intravenous Gadavist was administered without complication. FINDINGS: There is symmetric prominence of the ventricles and sulci. FLAIR hyperintensities in the supratentorial white matter are not specific but most suggestive of minimal small vessel ischemic disease. There is no acute intracranial hemorrhage or extra-axial fluid collection. There is no mass effect or midline shift. There is no restricted diffusion to suggest an acute infarct. Cervicomedullary junction is unremarkable. Pituitary and suprasellar region are unremarkable. Intracranial flow voids are preserved. There is pansinus mucosal thickening with relative sparing of the frontal sinuses. Maxillary sinuses are involved to the greatest degree. There is a left maxillary retention cyst. There is no pathologic enhancement. There is probably a right frontal developmental venous anomaly, normal vascular variant. IMPRESSION: 1. Brain parenchymal volume loss and probable small vessel ischemic disease. 2. No acute intracranial findings. Electronically signed by: Leo Naqvi MD (11/17/2016 2:33 PM) [id number]
[2016-11-17 15:00] VITALS: BP 113/73
[2016-11-17] MEDS ORDERED: ASPI-630 PO (15:34)
--- NOTE | 2016-11-17 18:22 | PDOC ---
PROGRESS NOTES Assessment Assessment IMPRESSION: Chest pain. Left UE pain x 1 hour on 11/14/16. Abdominal pain. S/p inguinal and umbilical hernia repair recently. Smoking Drinking. RECOMMENDATIONS/PLAN: Treat medical and surgical diseases. Neurology to follow as needed. HCT: Negative. PAST MEDICAL HISTORY Cardiovascular: No pertinent hx Pulmonary: Asthma CENTRAL NERVOUS SYSTEM: Vertigo GI: No pertinent hx Heme/Onc: No pertinent hx Hepatobiliary: No pertinent hx Psych: No pertinent hx Rheumatologic: No pertinent hx Infectious disease: No pertinent hx ENT: No pertinent hx Renal/: No pertinent hx Endocrine: No pertinent hx Dermatology: No pertinent hx PAST SURGICAL HISTORY Past Surgical History: Hernia Repair (11/14/16) FAMILY HISTORY Family History: Other (noncontributory ) SOCIAL HISTORY Smoke: <1 pack per day ALCOHOL: other (3-4 beers per day) Drugs: None Lives: Alone ALLERGY: Reviewed. MEDICATIONS: Refer to MAR REVIEW OF SYSTEMS: refered to PMH and PSH. Otherwise, not -cubkz review of systems. PHYSICAL EXAMINATION: General appearance in no acute distress. HEENT: Normocephalic and nontraumatic. Eyes, nose, ears, and throat are unremarkable. Hearing decrease. Neck is supple. No lymphadenopathy. No bruits are heard over the carotid artery. No Crepitus. Cardiovascular: S1, S2, regular rate and rhythm. Pulmonary: Clear to auscultation bilaterally. Abdomen: Bowel sounds are positive. Extremities: No rash, lesions, or edema. No restriction of range of motion NEUROLOGICAL EXAMINATION: Alert. Oriented to time, place and person. PERRL. EOMI. CN: no focal findings. Muscle tone: within normal. Muscle strength: 5 DTR: 2 Plantar reflex: Flexor response bilaterally Gait: not examined in bed. Sensory exam: no abnormal findings. No cerebellar signs elicited. F-T-N test accurate. Objective Objective Vital Signs Date Time Temp Pulse Resp B/P (MAP) Pulse Ox O2 Delivery O2 Flow Rate FiO2 11/17/16 16:15 94 Room Air 11/17/16 15:00 97.8 72 18 113/73 (86) 97.8 Vitals Signs Vitals VS - Last 72 Hours, by Label Date Time Temp Pulse Resp B/P (MAP) Pulse Ox O2 Delivery O2 Flow Rate FiO2 11/17/16 16:15 94 Room Air 11/17/16 15:00 97.8 72 18 113/73 (86) 94 Room Air 97.8 11/17/16 12:50 95 Room Air 11/17/16 12:33 Room Air 11/17/16 11:00 97.5 72 18 107/64 (78) 95 Room Air 97.5 11/17/16 08:00 Room Air 11/17/16 07:00 97.7 57 18 117/69 (85) 94 Room Air 97.7 11/17/16 03:00 98.4 55 18 108/59 (75) 98 Room Air 98.4 11/16/16 22:41 97.8 65 18 101/59 (73) 97 Room Air 97.8 11/16/16 20:04 Room Air 11/16/16 20:04 Room Air 11/16/16 20:00 Room Air 11/16/16 19:33 95 Room Air 11/16/16 19:00 98.7 63 18 113/59 (77) 98 Room Air 98.7 11/16/16 15:55 18 11/16/16 15:43 Room Air 11/16/16 15:00 98.1 72 16 115/64 (81) 95 Room Air 98.1 11/16/16 14:55 18 96 Room Air 11/16/16 12:01 Room Air 11/16/16 11:00 97.6 62 18 104/64 (77) 96 Room Air 97.6 11/16/16 09:29 18 96 Room Air 11/16/16 08:59 18 95 Room Air 11/16/16 08:00 Room Air 11/16/16 07:58 Room Air 11/16/16 07:57 Room Air 11/16/16 07:00 98.3 60 18 107/70 (82) 95 Room Air 98.3 Medication Medications Current Medications Aspirin (Children'S Aspirin) 81 mg [id number] PO Last administered on t 12:47; Start 11/17/16 at 10:30; Stop 11/17/16 at 17:33; Status DC Enoxaparin Sodium (Lovenox 40mg Syringe) 40 mg Q24H SQ ; Start 11/17/16 at 21:00 ; Stop 11/17/16 at 21:00; Status DC Gadobutrol (Gadavist) 7.5 mmol 1X ONCE IV Last administered on 11/17/16t 14:02 ; Start 11/17/16 at 14:00; Stop 11/17/16 at 14:01; Status DC Comment Review of Relevant I have reviewed the following items tami (where applicable) has been applied. KAIT BARGER MD Nov 17, 2016 18:22
[2016-11-17] MEDS ORDERED: ENOXAPARIN 40 MG/0.4 ML SYRINGE. SQ SCH (21:00)
== END 2016-11-17 16:45 | disposition home or self-care (01) | DRG 69 ==
LOC: ER 18:02 → 6 SOUTH 22:02
PROVIDERS: ADMIT Internal Medicine; ATTEND Internal Medicine
DX: G45.9 Transient cerebral ischemic attack, unspecified (principal); T79.7XXA Traumatic subcutaneous emphysema, initial encounter; K66.8 Other specified disorders of peritoneum; D53.9 Nutritional anemia, unspecified; F17.210 Nicotine dependence, cigarettes, uncomplicated; J45.909 Unspecified asthma, uncomplicated; K40.90 Unilateral inguinal hernia, without obstruction or gangrene, not specified as recurrent; K42.9 Umbilical hernia without obstruction or gangrene; Z80.0 Family history of malignant neoplasm of digestive organs; Z79.82 Long term (current) use of aspirin; Z83.0 Family history of human immunodeficiency virus [HIV] disease; Z82.5 Family history of asthma and other chronic lower respiratory diseases
CPT/HCPCS: 36415; 70450; 70553; 71010; 71275; 74177; 80048; 80053; 80061; 81001; 82607; 83690; 83880; 84443; 84484; 85007; 85025; 85379; 85610; 85730; 93005; 93880; 94250; 94640; 94760; 96361; 96374; A9585; J2270; J7030; J7613; J7626; Q9967; 99285-25